=== PATIENT | female | born 1935 | race Asian ===

== ENCOUNTER 2018-10-05 10:23 | Inpatient (IN) | payer MEDICARE, MEDICAID ==
[~2018-10-05] VITALS: Ht 157.5 cm; Wt 49.9 kg
[~2018-10-05 10:23] MED LIST: ARICEPT5 MG ORAL; COZAAR100 MG ORAL; DOCUSATE SODIU100 MG ORAL; DULCOLAX10 MG RC; MAALOX MAXIMUM355 M1 PO; MOM30 ML ORAL; TYLENOL325 MG ORAL; ZOCOR40 MG ORAL
[2018-10-05 10:25] VITALS: BP 100/69
--- NOTE | 2018-10-05 10:25 | NUR ---
ED Nurse Note: PT BROUGHT IN BY AMBULANCE FROM [facility]. AOX2 - PT NOT ORIENTED TO TIME OR SITUATION. PER EMS, PT HAS HAD 3 EPISODES OF COFFEE GROUND EMESIS X THIS AM. PT DENIES PAIN. ACTIVE BOWEL SOUNDS IN ALL QUADRANTS. ABDOMEN NONDISTENDED AND NONTENDER TO PALPATION.
--- NOTE | 2018-10-05 10:39 | Emergency Room Report ---
History of Present Illness General Chief Complaint: Gastrointestinal Bleed Source: EMS Present Illness HPI Patient is sent in for vomiting blood. Vomited coffee grounds. No other history is available about the current situation. The patient is unable to give a history. Patient was admitted in 2009 for psychosis. Chart unavailable. Patient seen for laceration. History of hyperlipidemia. History of dementia. Allergies: Coded Allergies: No Known Allergies (Verified , 02/28/10) Patient History Limited by: medical condition Past Medical History: see triage record, old chart reviewed Social History Narrative [facility] facility Reviewed Nursing Documentation: PMH: Agreed; PSxH: Agreed Nursing Documentation-PMH Past Medical History: No History, Except For Hx Hypertension: Yes - hyperlipidemia Hx Neurological Problems: Yes - dementia Review of Systems All Other Systems: limited Physical Exam Vital Signs Date Time Temp Pulse Resp B/P (MAP) Pulse Ox O2 Delivery O2 Flow Rate FiO2 10/05/18 10:22 97.3 68 15 106/69 95 Room Air Sp02 EP Interpretation: reviewed, normal General Appearance: no apparent distress, alert, Chronically Ill Head: normocephalic, atraumatic Eyes: bilateral eye normal inspection, bilateral eye PERRL ENT: moist mucus membranes Neck: supple Respiratory: lungs clear, normal breath sounds Cardiovascular #1: regular rate, rhythm Cardiovascular #2: 2+ radial (R) Gastrointestinal: normal inspection, normal bowel sounds, non tender, no mass, non-distended Musculoskeletal: gait/station normal, normal range of motion, other - Severe scoliosis and kyphosis Neurologic: motor strength/tone normal, DTRs symmetric, sensory intact, other - Dysarthria, able to ambulate but with some unsteadiness Psychiatric: other - Initially calm but then agitated Skin: normal inspection, warm/dry Medical Decision Making Diagnostic Impression: Primary Impression: Upper gastrointestinal bleed Additional Impressions: Dementia Qualified Codes: F03.91 - Unspecified dementia with behavioral disturbance UTI (urinary tract infection) Qualified Codes: N39.0 - Urinary tract infection, site not specified ER Course Patient presents vomiting coffee grounds. Differential includes gastritis, peptic ulcer disease, Amber-Batista tear amongst others. Evaluation will be with EKG, chest x-ray, x-ray abdomen and labs. The patient will be treated with IV Protonix. EKG without injury. Chest x-ray clear. Abdomen with severe lumbar disc disease and scoliosis with prior fracture. Labs with normal CBC and CMP with elevated BUN. Patient with agitation. Restraints and sedation required. Complicated patient is unable to determine symptoms. Observed history of upper GI bleeding. The patient is admitted for repeat CBC and treatment of possible upper GI bleed. Endoscopy may be indicated. Patient admitted medical floor Dr. Crane. Laboratory Tests Test 10/05/18 11:19 White Blood Count 11.0 K/UL (4.8-10.8) H Red Blood Count 3.82 M/UL (4.20-5.40) L Hemoglobin 11.7 G/DL (12.0-16.0) L Hematocrit 34.9 % (37.0-47.0) L Mean Corpuscular Volume 91 FL (80-99) Mean Corpuscular Hemoglobin 30.5 PG (27.0-31.0) Mean Corpuscular Hemoglobin Concent 33.4 G/DL (32.0-36.0) Red Cell Distribution Width 12.1 % (11.6-14.8) Platelet Count 283 K/UL (150-450) Mean Platelet Volume 6.5 FL (6.5-10.1) Neutrophils (%) (Auto) 79.7 % (45.0-75.0) H Lymphocytes (%) (Auto) 13.4 % (20.0-45.0) L Monocytes (%) (Auto) 5.5 % (1.0-10.0) Eosinophils (%) (Auto) 0.7 % (0.0-3.0) Basophils (%) (Auto) 0.7 % (0.0-2.0) Prothrombin Time 10.2 SEC (9.30-11.50) Prothrombin Time INR 1.0 (0.9-1.1) PTT 27 SEC (23-33) Sodium Level 138 MMOL/L (136-145) Potassium Level 3.8 MMOL/L (3.5-5.1) Chloride Level 104 MMOL/L (98-107) Carbon Dioxide Level 28 MMOL/L (21-32) Anion Gap 6 mmol/L (5-15) Blood Urea Nitrogen 15 mg/dL (7-18) Creatinine 0.7 MG/DL (0.55-1.30) Estimate Glomerular Filtration Rate mL/min (>60) Glucose Level 94 MG/DL (74-106) Calcium Level 9.2 MG/DL (8.5-10.1) Total Bilirubin 0.7 MG/DL (0.2-1.0) Aspartate Amino Transferase (AST) 16 U/L (15-37) Alanine Aminotransferase (ALT) 27 U/L (12-78) Alkaline Phosphatase 72 U/L (46-116) Troponin I 0.000 ng/mL (0.000-0.056) Total Protein 6.7 G/DL (6.4-8.2) Albumin 3.3 G/DL (3.4-5.0) L Globulin 3.4 g/dL Albumin/Globulin Ratio 1.0 (1.0-2.7) Lipase 118 U/L (73-393) EKG Diagnostic Results Rate: normal Rhythm: NSR ST Segments: no acute changes - RBBB Rhythm Strip Diag. Results EP Interpretation: yes Rhythm: NSR, no PVC's, no ectopy Chest X-Ray Diagnostic Results Chest X-Ray Diagnostic Results : Chest X-Ray Ordered: Yes # of Views/Limited/Complete: 1 View Indication: Chest Pain EP Interpretation: Yes Interpretation: no consolidation, no effusion, no pneumothorax Impression: No acute disease Electronically Signed by: Electronically signed by Bentley Priest MD Other X-Ray Diagnostic Results Other X-Ray Diagnostic Results : X-Ray ordered: abd # of Views/Limited Vs Complete: 1 View Indication: Other EP Interpretation: Yes Interpretation: nonspecific bowel gas, no sbo, other - scoleosis Impression: Other Electronically Signed by: Electronically signed by Bentley Priest MD Last Vital Signs Date Time Temp Pulse Resp B/P (MAP) Pulse Ox O2 Delivery O2 Flow Rate FiO2 10/06/18 00:12 97.9 61 18 118/65 (82) 99 10/05/18 21:04 Room Air Status: improved Disposition: ADMITTED INPATIENT Condition: Serious Bentley Priest MD Oct 05, 2018 10:39
[2018-10-05] MEDS ORDERED: Pantoprazole Inj IV ONE (10:45)
--- NOTE | 2018-10-05 11:11 | NUR ---
ED Nurse Note: XRAY AT BEDSIDE.
[2018-10-05 11:30] LABS: BASOPHILS % (AUTO) 0.7 % (0.0-2.0); EOSINOPHILS % (AUTO) 0.7 % (0.0-3.0); HEMATOCRIT 34.9 % (37.0-47.0); HEMOGLOBIN 11.7 G/DL (12.0-16.0); LYMPHOCYTES % (AUTO) 13.4 % (20.0-45.0); MEAN CORPUSCULAR VOLUME 91 FL (80-99); MONOCYTES % (AUTO) 5.5 % (1.0-10.0); NEUTROPHILS % (AUTO) 79.7 % (45.0-75.0); PLATELET COUNT 283 K/UL (150-450); RED BLOOD COUNT 3.82 M/UL (4.20-5.40); RED CELL DISTRIBUTION WIDTH 12.1 % (11.6-14.8)
[2018-10-05 11:38] LABS: ANION GAP 6 mmol/L (5-15); BLOOD UREA NITROGEN 15 mg/dL (7-18); CALCIUM 9.2 MG/DL (8.5-10.1); CARBON DIOXIDE 28 MMOL/L (21-32); CHLORIDE 104 MMOL/L (98-107); CREATININE 0.7 MG/DL (0.55-1.30); POTASSIUM 3.8 MMOL/L (3.5-5.1); SODIUM 138 MMOL/L (136-145)
[2018-10-05 11:42] LABS: ALANINE AMINOTRANSFERASE 27 U/L (12-78); ALBUMIN 3.3 G/DL (3.4-5.0); ALKALINE PHOSPHATASE 72 U/L (46-116); ASPARTATE AMINO TRANSFERASE 16 U/L (15-37); BILIRUBIN,TOTAL 0.7 MG/DL (0.2-1.0)
--- NOTE | 2018-10-05 11:51 | Diagnostic Imaging Report ---
Indication: Cough Technique: One view of the chest Comparison: 10/26/2015 Findings: Sulcal inspiration again noted. Bilateral basilar atelectatic changes again noted. Lungs pleural spaces are otherwise clear. The heart is borderline enlarged. The aorta is tortuous and ectatic. Impression: Hypoventilatory exam with bilateral basilar atelectatic changes. No definite acute process otherwise
--- NOTE | 2018-10-05 11:53 | Diagnostic Imaging Report ---
Indication: Abdominal pain Technique: Supine view of the abdomen Comparison: none Findings: Bowel gas pattern is unremarkable. No masses or unusual calcifications. There is considerable levoscoliotic deformity of the lumbar spine, with fairly extensive secondary degenerative changes. Slight loss of height of the lower lumbar vertebral segments is probably on the basis of degenerative remodeling, but compression fracture deformities are also possible. Impression: No acute process Lumbar scoliosis and secondary degenerative change as described
--- NOTE | 2018-10-05 12:17 | NUR ---
ED Nurse Note: PT PULLED OUT IV AND TIMBER ROBBER CABLES. PT OUT OF BED AND TRYING TO EXIT HOSPITAL. WHEN TRYING TO PLACE HER BACK INTO BED, PT BECAME AGGRESSIVE, COMBATIVE, SWUNG AT STAFF AND TRIED TO BITE SECURITY. ORDERS FOR SOFT RESTRAINTS PLACED BY DR. MCPHERSON. RESTRAINTS PLACED. PT SITTING IN BED BUT REMAINS AGITATED.
[2018-10-05 12:25] VITALS: BP 102/72
[2018-10-05] MEDS ORDERED: DiphenhydrAMINE 50mg/ml Inj IM ONE (12:30)
[2018-10-05] MEDS ORDERED: Haloperidol 5mg/ml Inj IM ONE ×2 (12:30→13:45)
[2018-10-05] MEDS ORDERED: LORazepam Inj 2mg/ml 1ml IM ONE (12:30)
[2018-10-05] MEDS ORDERED: LIPITOR20 MG ORAL (13:38)
[2018-10-05] MEDS ORDERED: MILK OF MA400 MG/51 ORAL (13:38)
--- NOTE | 2018-10-05 13:46 | NUR ---
Note nabil in EDM - 10/05/18 at 1349 by DERIC ED Nurse Note: CALLED SDU FOR PT REPORT. PER CHARGE, ELSE, BED NOT READY AND RN TAKING OVER IS ON ANOTHER FLOOR GIVING REPORT. RN WILL CALL BACK TO RECEIVE REPORT WHEN READY.
--- NOTE | 2018-10-05 13:50 | NUR ---
ED Nurse Note: [facility] CALLED FOR PT REPORT. RN NOT READY TO RECEIVE REPORT. REQUESTS TO CALL BACK IN 15 MINUTES.
--- NOTE | 2018-10-05 14:30 | Consultation ---
History of Present Illness General Date patient seen: Oct 05, 2018 Chief Complaint: Gastrointestinal Bleed Reason for Consultation: inpatient management Present Illness HPI 83 year old female with hx of dementia and psychosis presented to ER with CC of vomiting blood, coffee grounds. No other history is available about the current situation. The patient is unable to give a history. pt is admitted for further evaluation. Allergies: Coded Allergies: No Known Allergies (Verified , 02/28/10) Medication History Scheduled Atorvastatin Calcium* (Lipitor*), 20 MG ORAL BEDTIME, (Reported) Docusate Sodium* (Docusate Sodium*), 100 MG ORAL DAILY, (Reported) Donepezil Hcl* (Aricept*), 5 MG ORAL BEDTIME, (Reported) Losartan Potassium (Cozaar), 50 MG ORAL DAILY, (Reported) Mag Hydrox/Al Hydrox/Simeth (Maalox Maximum Strength Susp), 30 ML PO Q4HR, ( Reported) Magnesium Hydroxide (Milk of Magnesia), 30 ML ORAL NEEDED, (Reported) Magnesium Hydroxide* (Milk Of Magnesia*), 30 ML ORAL DAILY, (Reported) Simvastatin (Zocor), 40 MG ORAL BEDTIME, (Reported) Scheduled PRN Acetaminophen (Tylenol), 325 MG ORAL Q4HR PRN for Fever/Headache/Mild Pain, ( Reported) Miscellaneous Medications Bisacodyl (Dulcolax), 10 MG RC, (Reported) Patient History Healthcare decision maker Resuscitation status Advanced Directive on File Past Medical/Surgical History Past Medical/Surgical History: (1) Dementia Review of Systems All Other Systems: negative except mentioned in HPI Physical Exam General Appearance: cachetic Lines, tubes and drains: peripheral HEENT: normocephalic, atraumatic Neck: non-tender, normal alignment Respiratory/Chest: chest wall non-tender, no respiratory distress Breasts: no masses Cardiovascular/Chest: normal peripheral pulses Abdomen: normal bowel sounds Genitourinary/Rectal: normal genital exam Extremities: normal range of motion Last 24 Hour Vital Signs Date Time Temp Pulse Resp B/P (MAP) Pulse Ox O2 Delivery O2 Flow Rate FiO2 10/05/18 12:25 97.6 64 17 102/72 100 Room Air 10/05/18 10:25 61 16 Room Air 10/05/18 10:25 97.8 61 16 100/69 100 Room Air 10/05/18 10:22 97.3 68 15 106/69 95 Room Air Laboratory Tests Test 10/05/18 11:19 10/05/18 14:08 White Blood Count 11.0 K/UL (4.8-10.8) H Red Blood Count 3.82 M/UL (4.20-5.40) L Hemoglobin 11.7 G/DL (12.0-16.0) L Hematocrit 34.9 % (37.0-47.0) L Mean Corpuscular Volume 91 FL (80-99) Mean Corpuscular Hemoglobin 30.5 PG (27.0-31.0) Mean Corpuscular Hemoglobin Concent 33.4 G/DL (32.0-36.0) Red Cell Distribution Width 12.1 % (11.6-14.8) Platelet Count 283 K/UL (150-450) Mean Platelet Volume 6.5 FL (6.5-10.1) Neutrophils (%) (Auto) 79.7 % (45.0-75.0) H Lymphocytes (%) (Auto) 13.4 % (20.0-45.0) L Monocytes (%) (Auto) 5.5 % (1.0-10.0) Eosinophils (%) (Auto) 0.7 % (0.0-3.0) Basophils (%) (Auto) 0.7 % (0.0-2.0) Prothrombin Time 10.2 SEC (9.30-11.50) Prothromb Time International Ratio 1.0 (0.9-1.1) Activated Partial Thromboplast Time 27 SEC (23-33) Sodium Level 138 MMOL/L (136-145) Potassium Level 3.8 MMOL/L (3.5-5.1) Chloride Level 104 MMOL/L (98-107) Carbon Dioxide Level 28 MMOL/L (21-32) Anion Gap 6 mmol/L (5-15) Blood Urea Nitrogen 15 mg/dL (7-18) Creatinine 0.7 MG/DL (0.55-1.30) Estimat Glomerular Filtration Rate mL/min (>60) Glucose Level 94 MG/DL (74-106) Calcium Level 9.2 MG/DL (8.5-10.1) Total Bilirubin 0.7 MG/DL (0.2-1.0) Aspartate Amino Transf (AST/SGOT) 16 U/L (15-37) Alanine Aminotransferase (ALT/SGPT) 27 U/L (12-78) Alkaline Phosphatase 72 U/L (46-116) Troponin I 0.000 ng/mL (0.000-0.056) Total Protein 6.7 G/DL (6.4-8.2) Albumin 3.3 G/DL (3.4-5.0) L Globulin 3.4 g/dL Albumin/Globulin Ratio 1.0 (1.0-2.7) Lipase 118 U/L (73-393) Urine Color Pending Urine Appearance Pending Urine pH Pending Urine Specific [place] Pending Urine Protein Pending Urine Glucose (UA) Pending Urine Ketones Pending Urine Blood Pending Urine Nitrite Pending Urine Bilirubin Pending Urine Urobilinogen Pending Urine Leukocyte Esterase Pending Height (Feet): 5 Height (Inches): 4.00 Weight (Pounds): 110 Medications Current Medications Medications (Trade) Dose Ordered Sig/Luis Route PRN Reason Start Time Stop Time Status Last Admin Dose Admin Pantoprazole (Protonix) 40 mg EVERY 12 HOURS IVP 10/05/18 21:00 11/04/18 20:59 Sodium Chloride 1,000 ml @ 300 mls/hr Q3H20M IV 10/05/18 10:45 11/04/18 10:44 10/05/18 11:12 Assessment/Plan Problem List: (1) Upper gastrointestinal bleed ICD Codes: K92.2 - Gastrointestinal hemorrhage, unspecified SNOMED: 28913962 (2) Anemia ICD Codes: D64.9 - Anemia, unspecified SNOMED: 860606334 (3) Coffee ground emesis ICD Codes: K92.0 - Hematemesis SNOMED: 77353547 (4) Psychosis ICD Codes: F29 - Unspecified psychosis not due to a substance or known physiological condition SNOMED: 39770153 (5) Protein-calorie malnutrition, severe ICD Codes: E43 - Unspecified severe protein-calorie malnutrition SNOMED: 164871979, 380590798, 194181708 (6) Dementia ICD Codes: F03.90 - Unspecified dementia without behavioral disturbance SNOMED: 85300681 Qualifiers: Qualified Codes: F03.91 - Unspecified dementia with behavioral disturbance Assessment/Plan NPO iv fluids H2 blockers check electrolytes continue psych meds prbc prn GI evaluation Matt Alegre MD Oct 05, 2018 14:29
[2018-10-05] MEDS ORDERED: Mylanta II UD 30ml ORAL PRN (14:33)
--- NOTE | 2018-10-05 14:33 | NUR ---
ED Nurse Note: [facility] CALLED FOR PT REPORT. REPORT GIVEN TO LUIZA STARKEY. PT TAKEN UP TO [facility] VIA GURNEY WITH ALL BELONGINGS ACCOMPANIED BY EMT.
--- NOTE | 2018-10-05 14:38 | GI Initial Consult Note ---
History of Present Illness General Date patient seen: Oct 05, 2018 Time patient seen: 14:33 Reason for Hospitalization: Gastrointestinal Bleed Referring physician: VISHAL KENYON Reason for Consultation: GI BLEED Present Illness HPI 83 year old female patient admitted for reported coffee ground emesis. Pt seen in ED, awake alert with noted agitation. ROS limited, patient has history of dementia on restraints. Labs reviewed; presents with mild leukocytosis WBC 11.7 and mild anemia Hgb 11.7. Unknown history of endoscopy or colonoscopy. Home Meds Reported Medications Magnesium Hydroxide* (MILK OF MAGNESIA*) 400 Mg/5 Ml Oral.susp, 30 ML ORAL DAILY , ML 10/05/18 Atorvastatin Calcium* (LIPITOR*) 20 Mg Tablet, 20 MG ORAL BEDTIME, TAB 10/05/18 Simvastatin (ZOCOR) 40 Mg Tablet, 40 MG ORAL BEDTIME, TAB 10/26/15 Acetaminophen (Tylenol) 325 Mg Tab, 325 MG ORAL Q4HR PRN for Fever/Headache/ Mild Pain, #30 TAB 0 Refills 10/26/15 Mag Hydrox/Al Hydrox/Simeth (MAALOX MAXIMUM STRENGTH SUSP) 355 Ml Oral.susp, 30 ML PO Q4HR, ML 10/26/15 Magnesium Hydroxide (Milk of Magnesia) 30 Ml Susp, 30 ML ORAL NEEDED for Constipation 10/26/15 Bisacodyl (DULCOLAX) 10 Mg Supp.rect, 10 MG RC, SUPP 10/26/15 Docusate Sodium* (DOCUSATE SODIUM*) 100 Mg Capsule, 100 MG ORAL DAILY, CAP 10/26/15 Losartan Potassium (COZAAR) 100 Mg Tablet, 50 MG ORAL DAILY, TAB 10/26/15 Donepezil Hcl* (ARICEPT*) 5 Mg Tablet, 5 MG ORAL BEDTIME, TAB 10/26/15 Med list reviewed/reconciled: Yes Allergies: Coded Allergies: No Known Allergies (Verified , 02/28/10) Patient History Limited by: medical condition History Provided By: Medical Record [facility] Narrative Past Medical History: No History, Except For Hx Hypertension: Yes - hyperlipidemia Hx Neurological Problems: Yes - dementia Past Surgical History: none Family History Narrative N/A Social History: Denies: smoking, alcohol use, drug use, other Review of Systems All Other Systems: limited Physical Exam Vital Signs Date Time Temp Pulse Resp B/P (MAP) Pulse Ox O2 Delivery O2 Flow Rate FiO2 2/20/19 10:22 97.3 68 15 106/69 95 Room Air Sp02 EP Interpretation: reviewed, normal Labs Laboratory Tests Test 10/05/18 11:19 10/05/18 14:08 White Blood Count 11.0 K/UL (4.8-10.8) H Red Blood Count 3.82 M/UL (4.20-5.40) L Hemoglobin 11.7 G/DL (12.0-16.0) L Hematocrit 34.9 % (37.0-47.0) L Mean Corpuscular Volume 91 FL (80-99) Mean Corpuscular Hemoglobin 30.5 PG (27.0-31.0) Mean Corpuscular Hemoglobin Concent 33.4 G/DL (32.0-36.0) Red Cell Distribution Width 12.1 % (11.6-14.8) Platelet Count 283 K/UL (150-450) Mean Platelet Volume 6.5 FL (6.5-10.1) Neutrophils (%) (Auto) 79.7 % (45.0-75.0) H Lymphocytes (%) (Auto) 13.4 % (20.0-45.0) L Monocytes (%) (Auto) 5.5 % (1.0-10.0) Eosinophils (%) (Auto) 0.7 % (0.0-3.0) Basophils (%) (Auto) 0.7 % (0.0-2.0) Prothrombin Time 10.2 SEC (9.30-11.50) Prothromb Time International Ratio 1.0 (0.9-1.1) Activated Partial Thromboplast Time 27 SEC (23-33) Sodium Level 138 MMOL/L (136-145) Potassium Level 3.8 MMOL/L (3.5-5.1) Chloride Level 104 MMOL/L (98-107) Carbon Dioxide Level 28 MMOL/L (21-32) Anion Gap 6 mmol/L (5-15) Blood Urea Nitrogen 15 mg/dL (7-18) Creatinine 0.7 MG/DL (0.55-1.30) Estimat Glomerular Filtration Rate mL/min (>60) Glucose Level 94 MG/DL (74-106) Calcium Level 9.2 MG/DL (8.5-10.1) Total Bilirubin 0.7 MG/DL (0.2-1.0) Aspartate Amino Transf (AST/SGOT) 16 U/L (15-37) Alanine Aminotransferase (ALT/SGPT) 27 U/L (12-78) Alkaline Phosphatase 72 U/L (46-116) Troponin I 0.000 ng/mL (0.000-0.056) Total Protein 6.7 G/DL (6.4-8.2) Albumin 3.3 G/DL (3.4-5.0) L Globulin 3.4 g/dL Albumin/Globulin Ratio 1.0 (1.0-2.7) Lipase 118 U/L (73-393) Urine Color Pending Urine Appearance Pending Urine pH Pending Urine Specific [place] Pending Urine Protein Pending Urine Glucose (UA) Pending Urine Ketones Pending Urine Blood Pending Urine Nitrite Pending Urine Bilirubin Pending Urine Urobilinogen Pending Urine Leukocyte Esterase Pending General Appearance: well appearing, no apparent distress, alert, thin Head: normocephalic EENT: PERRL/EOMI, normal ENT inspection Neck: supple Respiratory: normal breath sounds, no respiratory distress Cardiovascular: normal rate Gastrointestinal: normal inspection, non tender, soft, normal bowel sounds, non -distended Rectal: deferred Genitourinary: no CVA tenderness Musculoskeletal: normal inspection, back normal Neurologic: alert, responsive Psychiatric: memory normal Skin: normal inspection, normal color, no rash, warm/dry, palpation normal, well hydrated Lymphatic: normal inspection, no adenopathy Current Medications Current Medications Medications (Trade) Dose Ordered Sig/Luis Route PRN Reason Start Time Stop Time Status Last Admin Dose Admin Acetaminophen (Tylenol) 650 mg Q4H PRN ORAL fever 10/05/18 14:30 11/04/18 14:29 UNV Al Hydroxide/Mg Hydroxide (Mylanta II) 30 ml Q6H PRN ORAL dyspepsia 10/05/18 14:30 11/04/18 14:29 UNV Atorvastatin Calcium (Lipitor) 20 mg BEDTIME ORAL 10/05/18 21:00 11/04/18 20:59 UNV Dextrose (Dextrose 50%) 25 ml Q30M PRN IV Hypoglycemia 10/05/18 14:30 11/04/18 14:29 UNV Dextrose (Dextrose 50%) 50 ml Q30M PRN IV Hypoglycemia 10/05/18 14:30 11/04/18 14:29 UNV Dextrose/Sodium Chloride 1,000 ml @ 100 mls/hr Q10H IV 10/05/18 14:28 11/04/18 14:27 UNV Diphenhydramine HCl (Benadryl) 25 mg Q6H PRN ORAL Itching/Pruritis 10/05/18 14:30 11/04/18 14:29 UNV Donepezil HCl (Aricept) 5 mg BEDTIME ORAL 10/05/18 21:00 11/04/18 20:59 UNV Ondansetron HCl (Zofran) 4 mg Q6H PRN IVP Nausea & Vomiting 10/05/18 14:30 11/04/18 14:29 UNV Pantoprazole (Protonix) 40 mg EVERY 12 HOURS IVP 10/05/18 21:00 11/04/18 20:59 Phytonadione 10 mg/Dextrose 56 ml @ 110 mls/hr ONCE ONCE IVPB 10/05/18 14:30 10/05/18 15:00 UNV Sodium Chloride 1,000 ml @ 300 mls/hr Q3H20M IV 10/05/18 10:45 11/04/18 10:44 10/05/18 11:12 Temazepam (Restoril) 15 mg HSPRN PRN ORAL Insomnia 10/05/18 14:30 10/12/18 14:29 UNV GI: Plan Problems: (1) Anemia (2) PUD (peptic ulcer disease) (3) Coffee ground emesis (4) Gastritis (5) Upper gastrointestinal bleed Plan EGD to be scheduled for tomorrow. - okay for CLD now, NPO @NV. - hold all blood thinners anemia work up OB stool r/o GI bleed monitor H&H, prn transfusions bowel regime ppi BID will follow with additional recommendations post procedure Discussed with Dr. Jackson. Thank you for this patient referral, we will follow. The patient was seen and examined at bedside and all new and available data was reviewed in the patients chart. I agree with the above findings, impression and plan. (Patient seen earlier today. Signature stamp does not reflect patient encounter time.). - MD Sara ParkAbrazo Arizona Heart HospitalRao GOTTI Oct 05, 2018 14:38
[2018-10-05 14:41] LABS: APPEARANCE,URINE CLOUDY; BILIRUBIN, URINE NEGATIVE (NEGATIVE); COLOR,URINE PALE YELLOW; GLUCOSE, URINE (UA) NEGATIVE (NEGATIVE); KETONES,URINE NEGATIVE (NEGATIVE); LEUKOCYTE ESTERASE ,URINE 3+ (NEGATIVE); NITRITE,URINE NEGATIVE (NEGATIVE); PH,URINE 7 (4.5-8.0); PROTEIN,URINE 1+ (NEGATIVE); UROBILINOGEN,URINE NORMAL MG/DL (0.0-1.0)
--- NOTE | 2018-10-05 14:50 | NUR ---
NURSE NOTES: Received report from JASSON Ojeda RN. Pt brought to room 421-1, bilateral wrist restraints on, pt not speaking, no complaints of pain, vitals obtained, assessment done, see charting, pt confused, attempting to removed restraints and IV and trying to get out of bed, padded bed rails per seizure precaution order, bed in lowest position, call light within reach
[2018-10-05 15:10] VITALS: BP 132/84
[2018-10-05] MEDS: D5NS 1,000 ML IV SCH (16:14)
[2018-10-05] MEDS ORDERED: Phytonadione 10 MG in D5W 55 ML IVPB SCH (17:00)
[2018-10-05] MEDS: LORazepam Inj 2mg/ml 1ml IV PRN (17:01)
--- NOTE | 2018-10-05 17:06 | Consultation ---
History of Present Illness General Date patient seen: Oct 05, 2018 Time patient seen: 17:00 Chief Complaint: Gastrointestinal Bleed Referring physician: VISHAL KENYON Reason for Consultation: GI BLEED Present Illness HPI 83 y/o F with hx of HLD, Dementia presents to ED on 10/05 with coffee ground emesis. Upon admission was noted to have leukocytosis up to 11.7 Allergies: Coded Allergies: No Known Allergies (Verified , 02/28/10) Medication History Scheduled Atorvastatin Calcium* (Lipitor*), 20 MG ORAL BEDTIME, (Reported) Docusate Sodium* (Docusate Sodium*), 100 MG ORAL DAILY, (Reported) Donepezil Hcl* (Aricept*), 5 MG ORAL BEDTIME, (Reported) Losartan Potassium (Cozaar), 50 MG ORAL DAILY, (Reported) Mag Hydrox/Al Hydrox/Simeth (Maalox Maximum Strength Susp), 30 ML PO Q4HR, ( Reported) Magnesium Hydroxide (Milk of Magnesia), 30 ML ORAL NEEDED, (Reported) Magnesium Hydroxide* (Milk Of Magnesia*), 30 ML ORAL DAILY, (Reported) Simvastatin (Zocor), 40 MG ORAL BEDTIME, (Reported) Scheduled PRN Acetaminophen (Tylenol), 325 MG ORAL Q4HR PRN for Fever/Headache/Mild Pain, ( Reported) Miscellaneous Medications Bisacodyl (Dulcolax), 10 MG RC, (Reported) Patient History Healthcare decision maker Resuscitation status Full Code Advanced Directive on File No Patient History Narrative Pmhx: as above Shx: Denies: smoking, alcohol use, drug use, other Fhx: non contributory Review of Systems All Other Systems: negative except mentioned in HPI Physical Exam Physical Exam Narrative General Appearance: well appearing, no apparent distress, alert, thin HEENT: normocephalic, PERRL/EOMI, normal ENT inspection Neck: supple Respiratory: normal breath sounds, no respiratory distress Cardiovascular: normal rate Gastrointestinal: normal inspection, non tender, soft, normal bowel sounds, non -distended Musculoskeletal: normal inspection, back normal Neurologic: alert, responsive Skin: normal inspection, normal color, no rash, warm/dry, palpation normal, well hydrated Last 24 Hour Vital Signs Date Time Temp Pulse Resp B/P (MAP) Pulse Ox O2 Delivery O2 Flow Rate FiO2 10/05/18 15:13 Room Air 10/05/18 15:10 97.7 64 14 132/84 (100) 92 10/05/18 14:35 97.5 66 16 106/74 100 Room Air 10/05/18 12:25 97.6 64 17 102/72 100 Room Air 10/05/18 10:25 61 16 Room Air 10/05/18 10:25 97.8 61 16 100/69 100 Room Air 10/05/18 10:22 97.3 68 15 106/69 95 Room Air Laboratory Tests Test 10/05/18 11:19 10/05/18 14:08 White Blood Count 11.0 K/UL (4.8-10.8) H Red Blood Count 3.82 M/UL (4.20-5.40) L Hemoglobin 11.7 G/DL (12.0-16.0) L Hematocrit 34.9 % (37.0-47.0) L Mean Corpuscular Volume 91 FL (80-99) Mean Corpuscular Hemoglobin 30.5 PG (27.0-31.0) Mean Corpuscular Hemoglobin Concent 33.4 G/DL (32.0-36.0) Red Cell Distribution Width 12.1 % (11.6-14.8) Platelet Count 283 K/UL (150-450) Mean Platelet Volume 6.5 FL (6.5-10.1) Neutrophils (%) (Auto) 79.7 % (45.0-75.0) H Lymphocytes (%) (Auto) 13.4 % (20.0-45.0) L Monocytes (%) (Auto) 5.5 % (1.0-10.0) Eosinophils (%) (Auto) 0.7 % (0.0-3.0) Basophils (%) (Auto) 0.7 % (0.0-2.0) Prothrombin Time 10.2 SEC (9.30-11.50) Prothromb Time International Ratio 1.0 (0.9-1.1) Activated Partial Thromboplast Time 27 SEC (23-33) Sodium Level 138 MMOL/L (136-145) Potassium Level 3.8 MMOL/L (3.5-5.1) Chloride Level 104 MMOL/L (98-107) Carbon Dioxide Level 28 MMOL/L (21-32) Anion Gap 6 mmol/L (5-15) Blood Urea Nitrogen 15 mg/dL (7-18) Creatinine 0.7 MG/DL (0.55-1.30) Estimat Glomerular Filtration Rate mL/min (>60) Glucose Level 94 MG/DL (74-106) Calcium Level 9.2 MG/DL (8.5-10.1) Total Bilirubin 0.7 MG/DL (0.2-1.0) Aspartate Amino Transf (AST/SGOT) 16 U/L (15-37) Alanine Aminotransferase (ALT/SGPT) 27 U/L (12-78) Alkaline Phosphatase 72 U/L (46-116) Troponin I 0.000 ng/mL (0.000-0.056) Total Protein 6.7 G/DL (6.4-8.2) Albumin 3.3 G/DL (3.4-5.0) L Globulin 3.4 g/dL Albumin/Globulin Ratio 1.0 (1.0-2.7) Lipase 118 U/L (73-393) Urine Color Pale yellow Urine Appearance Cloudy Urine pH 7 (4.5-8.0) Urine Specific [place] 1.005 (1.005-1.035) Urine Protein 1+ (NEGATIVE) H Urine Glucose (UA) Negative (NEGATIVE) Urine Ketones Negative (NEGATIVE) Urine Blood 4+ (NEGATIVE) H Urine Nitrite Negative (NEGATIVE) Urine Bilirubin Negative (NEGATIVE) Urine Urobilinogen Normal MG/DL (0.0-1.0) Urine Leukocyte Esterase 3+ (NEGATIVE) H Urine RBC 10-15 /HPF (0 - 2) H Urine WBC 15-20 /HPF (0 - 2) H Urine Squamous Epithelial Cells Few /LPF (NONE/OCC) Urine Bacteria Many /HPF (NONE) H Height (Feet): 5 Height (Inches): 3.00 Weight (Pounds): 110 Medications Current Medications Medications (Trade) Dose Ordered Sig/Luis Route PRN Reason Start Time Stop Time Status Last Admin Dose Admin Acetaminophen (Tylenol) 650 mg Q4H PRN ORAL fever 10/05/18 14:30 11/04/18 14:29 Al Hydroxide/Mg Hydroxide (Mylanta II) 30 ml Q6H PRN ORAL dyspepsia 10/05/18 14:33 11/04/18 14:32 Atorvastatin Calcium (Lipitor) 20 mg BEDTIME ORAL 10/05/18 21:00 11/04/18 20:59 Dextrose (Dextrose 50%) 25 ml Q30M PRN IV Hypoglycemia 10/05/18 14:30 11/04/18 14:29 Dextrose (Dextrose 50%) 50 ml Q30M PRN IV Hypoglycemia 10/05/18 14:30 11/04/18 14:29 Dextrose/Sodium Chloride 1,000 ml @ 100 mls/hr Q10H IV 10/05/18 14:28 11/04/18 14:27 10/05/18 16:14 Diphenhydramine HCl (Benadryl) 25 mg Q6H PRN ORAL Itching/Pruritis 10/05/18 14:30 11/04/18 14:29 Donepezil HCl (Aricept) 5 mg BEDTIME ORAL 10/05/18 21:00 11/04/18 20:59 Lorazepam (Ativan 2mg/ml 1ml) 1 mg Q6H PRN IV For Anxiety 10/05/18 17:00 10/12/18 16:59 Ondansetron HCl (Zofran) 4 mg Q6H PRN IVP Nausea & Vomiting 10/05/18 14:30 11/04/18 14:29 Pantoprazole (Protonix) 40 mg EVERY 12 HOURS IVP 10/05/18 21:00 11/04/18 20:59 Phytonadione 10 mg/Dextrose 56 ml @ 110 mls/hr ONCE IVPB 10/05/18 17:00 10/05/18 19:00 Temazepam (Restoril) 15 mg HSPRN PRN ORAL Insomnia 10/05/18 14:30 10/12/18 14:29 Assessment/Plan Assessment/Plan Abx: None Assessment: Leukocytosis- suspect reactive to coffee ground emesis -CXR: Hypoventilatory exam with bilateral basilar atelectatic changes. No definite acute process otherwise Afebrile Pyuria -u/a wbc 15-20, nit neg, leuk +3; ucx p HLD Dementia Plan: -Continue to monitor off abx unless febrile, increasing WBC and/or HD instability -f/u cx -Monitor CBC/CMP, temperatures Thank you for this consultation. Will continue to follow along with you. Discussed with Miley Torres M.D. Oct 05, 2018 17:06
--- NOTE | 2018-10-05 18:45 | History and Physical Report ---
DATE OF ADMISSION: 10/05/2018 APPROXIMATE TIME: 2 p.m. CONSULTANTS: 1. Matt Alegre M.D. 2. Jordon Jakcson M.D. 3. Go Abad M.D. CHIEF COMPLAINT: Upper gastrointestinal bleed. BRIEF HISTORY: The patient is an 83-year-old female from [facility] presents to [facility] with history of coffee-grounds emesis, was found to have upper GI bleed, and currently in the ER in restraints awaiting admission to the medical floor. Currently, lethargic, sleeping in restraints in the ER, refusing to answer questions. REVIEW OF SYSTEMS: Unavailable. PAST MEDICAL HISTORY: Encephalopathy, anemia, PUD. PAST SURGICAL HISTORY: Unknown. ALLERGIES: Denies. SOCIAL HISTORY: Unable to obtain secondary to the patient's condition. PHYSICAL EXAMINATION: GENERAL: Lethargic in bed, confused, disoriented x3, not really responding to questions, in restraints. VITAL SIGNS: Temperature is 97 degrees, pulse 66, respirations 16, blood pressure 106/74. CARDIOVASCULAR: No murmur. LUNGS: Distant, clear. ABDOMEN: Bowel sounds positive. Nontender. Nondistended. EXTREMITIES: No cyanosis, clubbing, edema. NEUROLOGIC: The patient moves all extremities, but slightly weak. LABORATORY DATA: White count 11, hemoglobin and hematocrit 11.7 and 34, otherwise CBC is normal. BMP is normal. Troponin 0.0. Albumin 3.3, otherwise BMP is normal. INR is 1.0, PTT is 27. Urinalysis showed 3+ leukocyte esterase. MEDICATIONS: Include pantoprazole, atorvastatin, benazepril, Tylenol, Zofran, temazepam, diphenhydramine. ASSESSMENT: Upper GI bleed, encephalopathy, anemia, PUD, UTI. PLAN: Continue previous medications. Antibiotics per Infectious Disease. PT, dietary eval. CBC, BMP in the morning. I will continue to follow this patient medically. Shamar Crane D.O. DR: TRUDI JOB#: [id number] CC:
--- NOTE | 2018-10-05 19:02 | NUR ---
NURSE NOTES: Obtained consent for EGD from pt's family member, [id number], Nell. Consent verified with LUIZA Tai.
--- NOTE | 2018-10-05 19:17 | NUR ---
HAND-OFF: Report given to LUIZA MONTELONGO.
--- NOTE | 2018-10-05 19:54 | NUR ---
NURSE NOTES: Received patient asleep with bilateral soft wrist restraints and paucivest on. Addendum: 10/05/18 at 1957 by REYMUNDO WEBER RN Received patient asleep with bilateral soft wrist restraints on.
[2018-10-05 20:00] VITALS: BP 108/61
[2018-10-05] MEDS: Donepezil 5mg Tab ORAL SCH (20:34)
[2018-10-05] MEDS: Pantoprazole Inj IVP SCH (20:34)
[2018-10-06] VITALS (10 sets, daily range): BP systolic 116–163; BP diastolic 65–96
[2018-10-06] MEDS: D5NS 1,000 ML IV SCH ×3 (03:52→20:14)
--- NOTE | 2018-10-06 06:55 | NUR ---
HAND-OFF: Report given to Natalia Roque RN.
--- NOTE | 2018-10-06 06:58 | NUR ---
NURSE NOTES: Report received from LUIZA Baires. Pt in bed, asleep, respirations unlabored, bed in lowest position, call light within reach
[2018-10-06 08:13] LABS: BASOPHILS % (AUTO) 0.8 % (0.0-2.0); EOSINOPHILS % (AUTO) 2.3 % (0.0-3.0); HEMATOCRIT 38.2 % (37.0-47.0); HEMOGLOBIN 12.5 G/DL (12.0-16.0); LYMPHOCYTES % (AUTO) 15.9 % (20.0-45.0); MEAN CORPUSCULAR VOLUME 93 FL (80-99); NEUTROPHILS % (AUTO) 75.1 % (45.0-75.0); PLATELET COUNT 225 K/UL (150-450); RED CELL DISTRIBUTION WIDTH 12.8 % (11.6-14.8)
[2018-10-06] MEDS: Pantoprazole Inj IVP SCH ×2 (08:14→20:14)
[2018-10-06] MEDS: LORazepam Inj 2mg/ml 1ml IV PRN ×2 (08:18→21:48)
[2018-10-06 08:38] LABS: ALANINE AMINOTRANSFERASE 15 U/L (12-78); ALBUMIN 3.2 G/DL (3.4-5.0); ALBUMIN/GLOBULIN RATIO 0.9 (1.0-2.7); ALKALINE PHOSPHATASE 76 U/L (46-116); ANION GAP 8 mmol/L (5-15); ASPARTATE AMINO TRANSFERASE 27 U/L (15-37); BILIRUBIN,TOTAL 0.7 MG/DL (0.2-1.0); BLOOD UREA NITROGEN 7 mg/dL (7-18); CALCIUM 8.7 MG/DL (8.5-10.1); CARBON DIOXIDE 25 MMOL/L (21-32); CHLORIDE 110 MMOL/L (98-107); CREATININE 0.7 MG/DL (0.55-1.30); POTASSIUM 3.7 MMOL/L (3.5-5.1); SODIUM 143 MMOL/L (136-145)
[2018-10-06 09:02] LABS: AMYLASE 59 U/L (25-115)
--- NOTE | 2018-10-06 11:25 | Anethesia Preoperative Eval ---
Anesthesia Pre-op PMH/ROS General Date of Evaluation: Oct 06, 2018 Time of Evaluation: 11:22 Anesthesiologist: Jennifer Amanda CRNA ASA Score: ASA 3 Mallampati Score Class I : Soft palate, uvula, fauces, pillars visible Class II: Soft palate, uvula, fauces visible Class III: Soft palate, base of uvula visible Class IV: Only hard plate visible Mallampati Classification: Class II Surgeon: Renetta Diagnosis: GI bleed Surgical Procedure: EGD diagnostic Anesthesia History: none Family History: no anesthesia problems Allergies: Coded Allergies: No Known Allergies (Verified , 02/28/10) Medications: see eMAR Patient NPO?: Yes NPO Date: Oct 05, 2018 NPO Time: 1500 Past Medical History Cardiovascular: Denies: HTN, CAD, CA, valve dz, arrhythmia, other Pulmonary: Denies: asthma, COPD, NETO, other Gastrointestinal/Genitourinary: Reports: GERD, other - Gi bleed; Denies: CRI, ESRD Neurologic/Psychiatric: Reports: dementia; Denies: CVA, depression/anxiety, TIA, other Endocrine: Denies: DM, hypothyroidism, steroids, other HEENT: Denies: cataract (L), cataract (R), glaucoma, VENETIE (L), VENETIE (R), other Hematology/Immune: Reports: anemia; Denies: DVT, bleeding disorder, other Musculoskeletal/Integumentary: Reports: other - Lumbar scoliosis; Denies: OA, RA, DJD, DDD, edema PMH Narrative: as above PSxH Narrative: see H & P Anesthesia Pre-op Phys. Exam Physician Exam Last Vital Signs Date Time Temp Pulse Resp B/P (MAP) Pulse Ox O2 Delivery O2 Flow Rate FiO2 10/06/18 09:00 Room Air 10/06/18 08:00 97.2 64 20 149/81 (103) 100 Constitutional: NAD, other - sleeping Neurologic: CN 2-12 intact Cardiovascular: RRR Respiratory: CTA Gastrointestinal: S/NT/ND Airway Exam Mallampati Score: Class II MO: full Neck: FROM TMD: 2-3 FB ROM: full Teeth: intact Dentures: no upper, no lower Anesthesia Pre-op A/P Labs Hematology Test 10/06/18 07:32 White Blood Count 7.0 K/UL (4.8-10.8) Red Blood Count 4.10 M/UL (4.20-5.40) L Hemoglobin 12.5 G/DL (12.0-16.0) Hematocrit 38.2 % (37.0-47.0) Mean Corpuscular Volume 93 FL (80-99) Mean Corpuscular Hemoglobin 30.6 PG (27.0-31.0) Mean Corpuscular Hemoglobin Concent 32.8 G/DL (32.0-36.0) Red Cell Distribution Width 12.8 % (11.6-14.8) Platelet Count 225 K/UL (150-450) Mean Platelet Volume 6.1 FL (6.5-10.1) L Neutrophils (%) (Auto) 75.1 % (45.0-75.0) H Lymphocytes (%) (Auto) 15.9 % (20.0-45.0) L Monocytes (%) (Auto) 6.0 % (1.0-10.0) Eosinophils (%) (Auto) 2.3 % (0.0-3.0) Basophils (%) (Auto) 0.8 % (0.0-2.0) Coagulation Test 10/06/18 07:32 Prothrombin Time 10.2 SEC (9.30-11.50) Prothromb Time International Ratio 1.0 (0.9-1.1) Activated Partial Thromboplast Time 26 SEC (23-33) Chemistry Test 10/06/18 07:32 Sodium Level 143 MMOL/L (136-145) Potassium Level 3.7 MMOL/L (3.5-5.1) Chloride Level 110 MMOL/L (98-107) H Carbon Dioxide Level 25 MMOL/L (21-32) Anion Gap 8 mmol/L (5-15) Blood Urea Nitrogen 7 mg/dL (7-18) Creatinine 0.7 MG/DL (0.55-1.30) Estimat Glomerular Filtration Rate mL/min (>60) Glucose Level 70 MG/DL (74-106) L Calcium Level 8.7 MG/DL (8.5-10.1) Total Bilirubin 0.7 MG/DL (0.2-1.0) Aspartate Amino Transf (AST/SGOT) 27 U/L (15-37) Alanine Aminotransferase (ALT/SGPT) 15 U/L (12-78) Alkaline Phosphatase 76 U/L (46-116) Total Protein 6.7 G/DL (6.4-8.2) Albumin 3.2 G/DL (3.4-5.0) L Globulin 3.5 g/dL Albumin/Globulin Ratio 0.9 (1.0-2.7) L Amylase Level 59 U/L (25-115) Lipase 100 U/L (73-393) Studies Pre-op Studies: CXR - atelectasis Risk Assessment & Plan Assessment: ASA 3, ok to proceed Plan: MAC Status Change Before Surgery: No Pre-Antibiotics Given Within 1 Hr of Incision: No Jennifer Amanda CRNA Oct 06, 2018 11:25
[2018-10-06] MEDS ORDERED: D5NS 1000ml IV ONE (11:30)
[2018-10-06] MEDS ORDERED: Propofol 200mg/20ml IV ONE (11:30)
[2018-10-06] MEDS ORDERED: Lidocaine 1% MPF 10mg/ml 5ml ONE (11:30)
--- NOTE | 2018-10-06 11:36 | Pre-Procedure Note/Attestation ---
Pre-Procedure Note/Attestation Complete Prior to Procedure Planned Procedure: not applicable Procedure Narrative: egd Indications for Procedure Pre-Operative Diagnosis: gib Attestation I attest that I discussed the nature of the procedure; its benefits; risks and complications; and alternatives (and the risks and benefits of such alternatives ), prior to the procedure, with the patient (or the patient's legal manufacturers representative). I attest that, if there was a reasonable possibility of needing a blood transfusion, the patient (or the patient's legal manufacturers representative) was given the [facility] standardized written summary, pursuant to the Bimal Yvrose Blood Safety Act ([place] Health and Safety Code # 1645, as amended). I attest that I re-evaluated the patient just prior to the surgery and that there has been no change in the patient's H&P, except as documented below: Jordon Jackson MD Oct 06, 2018 11:36
--- NOTE | 2018-10-06 11:37 | GI Progress Note ---
Assessment/Plan Problems: (1) GI bleed ICD Codes: K92.2 - Gastrointestinal hemorrhage, unspecified SNOMED: 03598422 (2) Coffee ground emesis ICD Codes: K92.0 - Hematemesis SNOMED: 17363101 (3) Upper gastrointestinal bleed ICD Codes: K92.2 - Gastrointestinal hemorrhage, unspecified SNOMED: 74966710 (4) PUD (peptic ulcer disease) ICD Codes: K27.9 - Peptic ulcer, site unspecified, unspecified as acute or chronic, without hemorrhage or perforation SNOMED: 07885362 (5) Gastritis ICD Codes: K29.70 - Gastritis, unspecified, without bleeding SNOMED: 2542507 Assessment/Plan plan for EGD today Subjective Gastrointestinal/Abdominal: Reports: abdominal pain, black stools Objective Last 24 Hour Vital Signs Date Time Temp Pulse Resp B/P (MAP) Pulse Ox O2 Delivery O2 Flow Rate FiO2 10/06/18 09:00 Room Air 10/06/18 08:00 97.2 64 20 149/81 (103) 100 10/06/18 04:00 97.7 59 18 121/67 (85) 97 10/06/18 00:12 97.9 61 18 118/65 (82) 99 10/05/18 21:04 Room Air 10/05/18 20:00 97.3 59 18 108/61 (77) 92 10/05/18 15:13 Room Air 10/05/18 15:10 97.7 64 14 132/84 (100) 92 10/05/18 14:35 97.5 66 16 106/74 100 Room Air 10/05/18 12:25 97.6 64 17 102/72 100 Room Air Intake and Output 10/05/18 10/06/18 19:00 07:00 Intake Total 1100 ml 1200 ml Balance 1100 ml 1200 ml Intake IV Total 1100 ml 1200 ml # Voids 2 4 Laboratory Tests Test 10/05/18 14:08 10/06/18 07:32 Urine Color Pale yellow Urine Appearance Cloudy Urine pH 7 (4.5-8.0) Urine Specific [place] 1.005 (1.005-1.035) Urine Protein 1+ (NEGATIVE) H Urine Glucose (UA) Negative (NEGATIVE) Urine Ketones Negative (NEGATIVE) Urine Blood 4+ (NEGATIVE) H Urine Nitrite Negative (NEGATIVE) Urine Bilirubin Negative (NEGATIVE) Urine Urobilinogen Normal MG/DL (0.0-1.0) Urine Leukocyte Esterase 3+ (NEGATIVE) H Urine RBC 10-15 /HPF (0 - 2) H Urine WBC 15-20 /HPF (0 - 2) H Urine Squamous Epithelial Cells Few /LPF (NONE/OCC) Urine Bacteria Many /HPF (NONE) H White Blood Count 7.0 K/UL (4.8-10.8) Red Blood Count 4.10 M/UL (4.20-5.40) L Hemoglobin 12.5 G/DL (12.0-16.0) Hematocrit 38.2 % (37.0-47.0) Mean Corpuscular Volume 93 FL (80-99) Mean Corpuscular Hemoglobin 30.6 PG (27.0-31.0) Mean Corpuscular Hemoglobin Concent 32.8 G/DL (32.0-36.0) Red Cell Distribution Width 12.8 % (11.6-14.8) Platelet Count 225 K/UL (150-450) Mean Platelet Volume 6.1 FL (6.5-10.1) L Neutrophils (%) (Auto) 75.1 % (45.0-75.0) H Lymphocytes (%) (Auto) 15.9 % (20.0-45.0) L Monocytes (%) (Auto) 6.0 % (1.0-10.0) Eosinophils (%) (Auto) 2.3 % (0.0-3.0) Basophils (%) (Auto) 0.8 % (0.0-2.0) Prothrombin Time 10.2 SEC (9.30-11.50) Prothromb Time International Ratio 1.0 (0.9-1.1) Activated Partial Thromboplast Time 26 SEC (23-33) Sodium Level 143 MMOL/L (136-145) Potassium Level 3.7 MMOL/L (3.5-5.1) Chloride Level 110 MMOL/L (98-107) H Carbon Dioxide Level 25 MMOL/L (21-32) Anion Gap 8 mmol/L (5-15) Blood Urea Nitrogen 7 mg/dL (7-18) Creatinine 0.7 MG/DL (0.55-1.30) Estimat Glomerular Filtration Rate mL/min (>60) Glucose Level 70 MG/DL (74-106) L Calcium Level 8.7 MG/DL (8.5-10.1) Total Bilirubin 0.7 MG/DL (0.2-1.0) Aspartate Amino Transf (AST/SGOT) 27 U/L (15-37) Alanine Aminotransferase (ALT/SGPT) 15 U/L (12-78) Alkaline Phosphatase 76 U/L (46-116) Total Protein 6.7 G/DL (6.4-8.2) Albumin 3.2 G/DL (3.4-5.0) L Globulin 3.5 g/dL Albumin/Globulin Ratio 0.9 (1.0-2.7) L Amylase Level 59 U/L (25-115) Lipase 100 U/L (73-393) Microbiology Date/Time Source Procedure Growth Status 10/05/18 14:08 Urine,Clean Catch Urine Culture - Preliminary Resulted Height (Feet): 5 Height (Inches): 2.00 Weight (Pounds): 110 General Appearance: no apparent distress Cardiovascular: normal rate Respiratory/Chest: lungs clear Abdominal Exam: normal bowel sounds, non tender, soft Extremities: non-tender Jordon Jackson MD Oct 06, 2018 11:37
--- NOTE | 2018-10-06 11:47 | Endoscopy Procedure Note ---
Endoscopy Procedure Note General Indication for Procedure: gib Procedures Performed: EGD Operative Findings/Diagnosis: esophagitis Specimen: yes Pt Tolerated Procedure Well: Yes Estimated Blood Loss: none Anesthesia Anesthesiologist: mac Anesthesia: MAC Inserted Devices Implant(s) used?: No GI Core Measures 50 yrs or older w/o bx or poly: Not Applicable 10yrs. F/U not recommended: Not Applicable Jordon Jackson MD Oct 06, 2018 11:47
--- NOTE | 2018-10-06 12:00 | Immediate Post-Op Evaluation ---
Immediate Post-Op Evalulation Immediate Post-Op Evalulation Procedure: EGD diagnostic Date of Evaluation: Oct 06, 2018 Time of Evaluation: 11:50 IV Fluids: D5/0.9 NS 50 ml Blood Pressure Systolic: 143 Blood Pressure Diastolic: 89 Pulse Rate: 65 Respiratory Rate: 20 O2 Sat by Pulse Oximetry: 100 Temperature (Fahrenheit): 97.9 Pain Score (1-10): 0 Nausea: No Vomiting: No Complications none Patient Status: reacts, patent Hydration Status: adequate Given Within 1 Hr of Incision: Jennifer Arguelles CRNA Oct 06, 2018 12:00
--- NOTE | 2018-10-06 13:37 | Pulmonology Progress Note ---
Assessment/Plan Problems: (1) Upper gastrointestinal bleed (2) Coffee ground emesis (3) Protein-calorie malnutrition, severe (4) Psychosis (5) Dementia Assessment/Plan continue NPO iv fluids, the same rate H2 blockers check electrolytes continue psych meds prbc prn GI evaluation Subjective ROS Limited/Unobtainable: Yes Constitutional: Reports: no symptoms HEENT: Repors: no symptoms Allergies: Coded Allergies: No Known Allergies (Verified , 02/28/10) Objective Last 24 Hour Vital Signs Date Time Temp Pulse Resp B/P (MAP) Pulse Ox O2 Delivery O2 Flow Rate FiO2 10/06/18 12:23 98.0 58 17 145/78 100 Nasal Cannula 3 10/06/18 12:10 59 16 140/81 99 Nasal Cannula 3 10/06/18 12:00 57 15 139/78 100 Nasal Cannula 3 10/06/18 12:00 65 20 100 10/06/18 11:55 60 17 144/82 100 Nasal Cannula 3 10/06/18 11:50 97.9 65 14 143/88 100 Nasal Cannula 3 10/06/18 09:00 Room Air 10/06/18 08:00 97.2 64 20 149/81 (103) 100 10/06/18 04:00 97.7 59 18 121/67 (85) 97 10/06/18 00:12 97.9 61 18 118/65 (82) 99 10/05/18 21:04 Room Air 10/05/18 20:00 97.3 59 18 108/61 (77) 92 10/05/18 15:13 Room Air 10/05/18 15:10 97.7 64 14 132/84 (100) 92 10/05/18 14:35 97.5 66 16 106/74 100 Room Air Intake and Output 10/05/18 10/06/18 19:00 07:00 Intake Total 1100 ml 1200 ml Balance 1100 ml 1200 ml Intake IV Total 1100 ml 1200 ml # Voids 2 4 Objective General Appearance: WD/WN HEENT: normocephalic Respiratory/Chest: chest wall non-tender, lungs clear, normal breath sounds Breasts: no masses Cardiovascular: normal peripheral pulses, normal rate Abdomen: normal bowel sounds, soft, non tender Extremities: no cyanosis Skin: no rash Microbiology Date/Time Source Procedure Growth Status 10/05/18 14:08 Urine,Clean Catch Urine Culture - Preliminary Resulted Laboratory Tests 10/05/18 14:08: Urine Color Pale yellow, Urine Appearance Cloudy, Urine pH 7, Urine Specific [place] 1.005, Urine Protein 1+H, Urine Glucose (UA) Negative, Urine Ketones Negative, Urine Blood 4+H, Urine Nitrite Negative, Urine Bilirubin Negative, Urine Urobilinogen Normal, Urine Leukocyte Esterase 3+H, Urine RBC 10-15H, Urine WBC 15-20H, Urine Squamous Epithelial Cells Few, Urine Bacteria ManyH 10/06/18 07:32: White Blood Count 7.0, Red Blood Count 4.10L, Hemoglobin 12.5, Hematocrit 38.2, Mean Corpuscular Volume 93, Mean Corpuscular Hemoglobin 30.6, Mean Corpuscular Hemoglobin Concent 32.8, Red Cell Distribution Width 12.8, Platelet Count 225, Mean Platelet Volume 6.1L, Neutrophils (%) (Auto) 75.1H, Lymphocytes (%) (Auto) 15.9L, Monocytes (%) (Auto) 6.0, Eosinophils (%) (Auto) 2.3, Basophils (%) (Auto ) 0.8, Prothrombin Time 10.2, Prothromb Time International Ratio 1.0, Activated Partial Thromboplast Time 26, Sodium Level 143, Potassium Level 3.7, Chloride Level 110H, Carbon Dioxide Level 25, Anion Gap 8, Blood Urea Nitrogen 7, Creatinine 0.7, Estimat Glomerular Filtration Rate , Glucose Level 70L, Calcium Level 8.7, Total Bilirubin 0.7, Aspartate Amino Transf (AST/SGOT) 27, Alanine Aminotransferase (ALT/SGPT) 15, Alkaline Phosphatase 76, Total Protein 6.7, Albumin 3.2L, Globulin 3.5, Albumin/Globulin Ratio 0.9L, Amylase Level 59, Lipase 100 Current Medications Medications (Trade) Dose Ordered Sig/Luis Route PRN Reason Start Time Stop Time Status Last Admin Dose Admin Acetaminophen (Tylenol) 650 mg Q4H PRN ORAL fever 10/05/18 14:30 11/04/18 14:29 Al Hydroxide/Mg Hydroxide (Mylanta II) 30 ml Q6H PRN ORAL dyspepsia 10/05/18 14:33 11/04/18 14:32 Atorvastatin Calcium (Lipitor) 20 mg BEDTIME ORAL 10/05/18 21:00 11/04/18 20:59 Dextrose (Dextrose 50%) 25 ml Q30M PRN IV Hypoglycemia 10/05/18 14:30 11/04/18 14:29 Dextrose (Dextrose 50%) 50 ml Q30M PRN IV Hypoglycemia 10/05/18 14:30 11/04/18 14:29 Dextrose/Sodium Chloride 1,000 ml @ 100 mls/hr Q10H IV 10/05/18 14:28 11/04/18 14:27 10/06/18 03:52 Diphenhydramine HCl (Benadryl) 25 mg Q6H PRN ORAL Itching/Pruritis 10/05/18 14:30 11/04/18 14:29 Donepezil HCl (Aricept) 5 mg BEDTIME ORAL 10/05/18 21:00 11/04/18 20:59 Lorazepam (Ativan 2mg/ml 1ml) 1 mg Q6H PRN IV For Anxiety 10/05/18 17:00 10/12/18 16:59 10/06/18 08:18 Ondansetron HCl (Zofran) 4 mg Q6H PRN IVP Nausea & Vomiting 10/05/18 14:30 11/04/18 14:29 Pantoprazole (Protonix) 40 mg EVERY 12 HOURS IVP 10/05/18 21:00 11/04/18 20:59 10/06/18 08:14 Temazepam (Restoril) 15 mg HSPRN PRN ORAL Insomnia 10/05/18 14:30 10/12/18 14:29 Matt Alegre MD Oct 06, 2018 13:37
--- NOTE | 2018-10-06 15:27 | General Progress Note ---
Assessment/Plan Problem List: (1) Malnutrition ICD Codes: E46 - Unspecified protein-calorie malnutrition SNOMED: 00919113 (2) UTI (urinary tract infection) ICD Codes: N39.0 - Urinary tract infection, site not specified SNOMED: 22012736 (3) Coffee ground emesis ICD Codes: K92.0 - Hematemesis SNOMED: 00245580 (4) GI bleed ICD Codes: K92.2 - Gastrointestinal hemorrhage, unspecified SNOMED: 86014410 (5) Anemia ICD Codes: D64.9 - Anemia, unspecified SNOMED: 875245835 Status: unchanged Assessment/Plan pt diet abx gi f/u cbc bmp am Subjective Constitutional: Reports: weakness Allergies: Coded Allergies: No Known Allergies (Verified , 02/28/10) All Systems: reviewed and negative except above Subjective calm in bed Objective Last 24 Hour Vital Signs Date Time Temp Pulse Resp B/P (MAP) Pulse Ox O2 Delivery O2 Flow Rate FiO2 10/06/18 12:23 98.0 58 17 145/78 100 Nasal Cannula 3 10/06/18 12:10 59 16 140/81 99 Nasal Cannula 3 10/06/18 12:00 57 15 139/78 100 Nasal Cannula 3 10/06/18 12:00 65 20 100 10/06/18 11:55 60 17 144/82 100 Nasal Cannula 3 10/06/18 11:50 97.9 65 14 143/88 100 Nasal Cannula 3 10/06/18 09:00 Room Air 10/06/18 08:00 97.2 64 20 149/81 (103) 100 10/06/18 04:00 97.7 59 18 121/67 (85) 97 10/06/18 00:12 97.9 61 18 118/65 (82) 99 10/05/18 21:04 Room Air 10/05/18 20:00 97.3 59 18 108/61 (77) 92 Intake and Output 10/05/18 10/06/18 19:00 07:00 Intake Total 1100 ml 1200 ml Balance 1100 ml 1200 ml Intake IV Total 1100 ml 1200 ml # Voids 2 4 Laboratory Tests 10/06/18 07:32: White Blood Count 7.0, Red Blood Count 4.10L, Hemoglobin 12.5, Hematocrit 38.2, Mean Corpuscular Volume 93, Mean Corpuscular Hemoglobin 30.6, Mean Corpuscular Hemoglobin Concent 32.8, Red Cell Distribution Width 12.8, Platelet Count 225, Mean Platelet Volume 6.1L, Neutrophils (%) (Auto) 75.1H, Lymphocytes (%) (Auto) 15.9L, Monocytes (%) (Auto) 6.0, Eosinophils (%) (Auto) 2.3, Basophils (%) (Auto ) 0.8, Prothrombin Time 10.2, Prothromb Time International Ratio 1.0, Activated Partial Thromboplast Time 26, Sodium Level 143, Potassium Level 3.7, Chloride Level 110H, Carbon Dioxide Level 25, Anion Gap 8, Blood Urea Nitrogen 7, Creatinine 0.7, Estimat Glomerular Filtration Rate , Glucose Level 70L, Calcium Level 8.7, Total Bilirubin 0.7, Aspartate Amino Transf (AST/SGOT) 27, Alanine Aminotransferase (ALT/SGPT) 15, Alkaline Phosphatase 76, Total Protein 6.7, Albumin 3.2L, Globulin 3.5, Albumin/Globulin Ratio 0.9L, Amylase Level 59, Lipase 100 Height (Feet): 5 Height (Inches): 2.00 Weight (Pounds): 110 General Appearance: lethargic EENT: normal ENT inspection Neck: normal alignment Cardiovascular: normal peripheral pulses, normal rate, regular rhythm Respiratory/Chest: chest wall non-tender, lungs clear, normal breath sounds Abdomen: normal bowel sounds, non tender, soft Extremities: normal inspection Edema: no edema noted Arm (L), no edema noted Arm (R), no edema noted Leg (L), no edema noted Leg (R), no edema noted Pedal (L), no edema noted Pedal (R), no edema noted Generalized Neurologic: motor weakness Skin: normal pigmentation, warm/dry Shamar Crane DO Oct 06, 2018 15:27
--- NOTE | 2018-10-06 15:38 | NUR ---
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 97.4 HR 68 RR 15 B/P 106/69 WBC 11.0 H/H 11.7/34.9 UA+ PROTEIN,BLOOD,LEUKOCYTOSIS,RBC,WBC,BACTERIA CXR=HYPOVOLEMIA ATELECTASIS IS: ZOFRAN IV PROTONIX IV NS BOLUS X 1 LITER ADMITTED TO MED/SURG MED/SURG STATUS DCP RETURN TO [facility]
--- NOTE | 2018-10-06 15:59 | Infectious Diseases Prog Note ---
Assessment/Plan Assessment/Plan Abx: None Assessment: Leukocytosis- suspect reactive to coffee ground emesis; resolved off abx -CXR: Hypoventilatory exam with bilateral basilar atelectatic changes. No definite acute process otherwise Afebrile Pyuria -u/a wbc 15-20, nit neg, leuk +3; ucx p HLD Dementia Plan: -Continue to monitor off abx unless febrile, increasing WBC and/or HD instability -f/u cx -Monitor CBC/CMP, temperatures Thank you for this consultation. Will continue to follow along with you. Discussed with RN. Subjective Allergies: Coded Allergies: No Known Allergies (Verified , 02/28/10) Subjective afebrile leukocytosis resolved off abx Objective Vital Signs Last 24 Hour Vital Signs Date Time Temp Pulse Resp B/P (MAP) Pulse Ox O2 Delivery O2 Flow Rate FiO2 10/06/18 12:23 98.0 58 17 145/78 100 Nasal Cannula 3 10/06/18 12:10 59 16 140/81 99 Nasal Cannula 3 10/06/18 12:00 57 15 139/78 100 Nasal Cannula 3 10/06/18 12:00 65 20 100 10/06/18 11:55 60 17 144/82 100 Nasal Cannula 3 10/06/18 11:50 97.9 65 14 143/88 100 Nasal Cannula 3 10/06/18 09:00 Room Air 10/06/18 08:00 97.2 64 20 149/81 (103) 100 10/06/18 04:00 97.7 59 18 121/67 (85) 97 10/06/18 00:12 97.9 61 18 118/65 (82) 99 10/05/18 21:04 Room Air 10/05/18 20:00 97.3 59 18 108/61 (77) 92 Height (Feet): 5 Height (Inches): 2.00 Weight (Pounds): 110 Objective General Appearance: well appearing, no apparent distress, alert, thin HEENT: normocephalic, PERRL/EOMI, normal ENT inspection Neck: supple Respiratory: normal breath sounds, no respiratory distress Cardiovascular: normal rate Gastrointestinal: normal inspection, non tender, soft, normal bowel sounds, non -distended Musculoskeletal: normal inspection, back normal Neurologic: alert, responsive Skin: normal inspection, normal color, no rash, warm/dry, palpation normal, well hydrated Microbiology Date/Time Source Procedure Growth Status 10/05/18 14:08 Urine,Clean Catch Urine Culture - Preliminary Resulted Laboratory Tests Test 10/06/18 07:32 White Blood Count 7.0 K/UL (4.8-10.8) Red Blood Count 4.10 M/UL (4.20-5.40) L Hemoglobin 12.5 G/DL (12.0-16.0) Hematocrit 38.2 % (37.0-47.0) Mean Corpuscular Volume 93 FL (80-99) Mean Corpuscular Hemoglobin 30.6 PG (27.0-31.0) Mean Corpuscular Hemoglobin Concent 32.8 G/DL (32.0-36.0) Red Cell Distribution Width 12.8 % (11.6-14.8) Platelet Count 225 K/UL (150-450) Mean Platelet Volume 6.1 FL (6.5-10.1) L Neutrophils (%) (Auto) 75.1 % (45.0-75.0) H Lymphocytes (%) (Auto) 15.9 % (20.0-45.0) L Monocytes (%) (Auto) 6.0 % (1.0-10.0) Eosinophils (%) (Auto) 2.3 % (0.0-3.0) Basophils (%) (Auto) 0.8 % (0.0-2.0) Prothrombin Time 10.2 SEC (9.30-11.50) Prothromb Time International Ratio 1.0 (0.9-1.1) Activated Partial Thromboplast Time 26 SEC (23-33) Sodium Level 143 MMOL/L (136-145) Potassium Level 3.7 MMOL/L (3.5-5.1) Chloride Level 110 MMOL/L (98-107) H Carbon Dioxide Level 25 MMOL/L (21-32) Anion Gap 8 mmol/L (5-15) Blood Urea Nitrogen 7 mg/dL (7-18) Creatinine 0.7 MG/DL (0.55-1.30) Estimat Glomerular Filtration Rate mL/min (>60) Glucose Level 70 MG/DL (74-106) L Calcium Level 8.7 MG/DL (8.5-10.1) Total Bilirubin 0.7 MG/DL (0.2-1.0) Aspartate Amino Transf (AST/SGOT) 27 U/L (15-37) Alanine Aminotransferase (ALT/SGPT) 15 U/L (12-78) Alkaline Phosphatase 76 U/L (46-116) Total Protein 6.7 G/DL (6.4-8.2) Albumin 3.2 G/DL (3.4-5.0) L Globulin 3.5 g/dL Albumin/Globulin Ratio 0.9 (1.0-2.7) L Amylase Level 59 U/L (25-115) Lipase 100 U/L (73-393) Current Medications Medications (Trade) Dose Ordered Sig/Luis Route PRN Reason Start Time Stop Time Status Last Admin Dose Admin Acetaminophen (Tylenol) 650 mg Q4H PRN ORAL fever 10/05/18 14:30 11/04/18 14:29 Al Hydroxide/Mg Hydroxide (Mylanta II) 30 ml Q6H PRN ORAL dyspepsia 10/05/18 14:33 11/04/18 14:32 Atorvastatin Calcium (Lipitor) 20 mg BEDTIME ORAL 10/05/18 21:00 11/04/18 20:59 Dextrose (Dextrose 50%) 25 ml Q30M PRN IV Hypoglycemia 10/05/18 14:30 11/04/18 14:29 Dextrose (Dextrose 50%) 50 ml Q30M PRN IV Hypoglycemia 10/05/18 14:30 11/04/18 14:29 Dextrose/Sodium Chloride 1,000 ml @ 100 mls/hr Q10H IV 10/05/18 14:28 11/04/18 14:27 10/06/18 03:52 Diphenhydramine HCl (Benadryl) 25 mg Q6H PRN ORAL Itching/Pruritis 10/05/18 14:30 11/04/18 14:29 Donepezil HCl (Aricept) 5 mg BEDTIME ORAL 10/05/18 21:00 11/04/18 20:59 Lorazepam (Ativan 2mg/ml 1ml) 1 mg Q6H PRN IV For Anxiety 10/05/18 17:00 10/12/18 16:59 10/06/18 08:18 Ondansetron HCl (Zofran) 4 mg Q6H PRN IVP Nausea & Vomiting 10/05/18 14:30 11/04/18 14:29 Pantoprazole (Protonix) 40 mg EVERY 12 HOURS IVP 10/05/18 21:00 11/04/18 20:59 10/06/18 08:14 Temazepam (Restoril) 15 mg HSPRN PRN ORAL Insomnia 10/05/18 14:30 10/12/18 14:29 Miley Worthington M.D. Oct 06, 2018 15:59
--- NOTE | 2018-10-06 17:15 | Procedure Note ---
DATE OF PROCEDURE: 10/06/2018 SURGEON: Jordon Jackson M.D. REFERRING PHYSICIAN: Shamar Crane D.O. PROCEDURE: Upper endoscopy with biopsy. ANESTHESIA: Per Jennifer KENT. INSTRUMENT: Olympus adult flexible upper endoscope. INDICATION: Upper GI bleeding. REASON FOR PROCEDURE: The procedure, risks, benefits, and possible consequences, including hemorrhage, aspiration, perforation and infection, and alternative treatments, were explained to the patient/legal guardian by Dr. Jordon Jackson and the patient/legal guardian understood and accepted these risks. PROCEDURE IN DETAIL: After informed consent was obtained and the patient was adequately sedated, Olympus upper endoscope was advanced from mouth into the second portion of duodenum and retroflexion was performed in the stomach. The patient had evidence of distal esophagitis, LA criteria grade 2, most probably the source of upper GI bleeding. At this time, there is no evidence of any blood or blood products seen in the stomach. In the stomach, there was diffuse gastritis. Random biopsy from antrum was obtained to rule out H. pylori infection. At this time, the upper endoscope was retrieved and procedure was terminated. The patient tolerated the procedure very well without any complication. SUMMARY OF FINDINGS: 1. Distal esophagitis, most probably the source of bleeding. 2. Gastritis, status post biopsy. RECOMMENDATIONS: 1. PPI daily. 2. Reflux measures. 3. Resume diet. 4. Discharge planning per primary team. I want to thank Dr. Shamar Crane for this kind referral. Jordon Jackson M.D. DR: ZEINA JOB#: [id number] CC:
--- NOTE | 2018-10-06 19:30 | NUR ---
HAND-OFF: Report given to LUIZA Be.
[2018-10-06] MEDS: Donepezil 5mg Tab ORAL SCH (20:14)
[2018-10-07] VITALS: BP 129/78
[2018-10-07 04:27] VITALS: BP 152/90
[2018-10-07] MEDS: D5NS 1,000 ML IV SCH ×2 (06:16→16:28)
[2018-10-07 07:19] LABS: BASOPHILS % (AUTO) 1.9 % (0.0-2.0); EOSINOPHILS % (AUTO) 2.2 % (0.0-3.0); HEMATOCRIT 35.1 % (37.0-47.0); HEMOGLOBIN 11.7 G/DL (12.0-16.0); LYMPHOCYTES % (AUTO) 11.2 % (20.0-45.0); MEAN CORPUSCULAR VOLUME 91 FL (80-99); MONOCYTES % (AUTO) 8.6 % (1.0-10.0); NEUTROPHILS % (AUTO) 76.2 % (45.0-75.0); PLATELET COUNT 247 K/UL (150-450); RED BLOOD COUNT 3.84 M/UL (4.20-5.40); RED CELL DISTRIBUTION WIDTH 12.1 % (11.6-14.8); WHITE BLOOD COUNT 8.2 K/UL (4.8-10.8)
--- NOTE | 2018-10-07 07:33 | NUR ---
NURSE NOTES: pt in bed with nos nor in any form of distress noted. on (B)soft wrist restraint with no injury. Remains in bed calm and sleeping at this time. Bed in lowest position. Bed alarm on. Call light within reach at all time. will continue to monitor
[2018-10-07 07:49] LABS: ANION GAP 6 mmol/L (5-15); BLOOD UREA NITROGEN 7 mg/dL (7-18); CARBON DIOXIDE 27 MMOL/L (21-32); CHLORIDE 108 MMOL/L (98-107); CREATININE 0.7 MG/DL (0.55-1.30); POTASSIUM 3.4 MMOL/L (3.5-5.1); SODIUM 141 MMOL/L (136-145)
--- NOTE | 2018-10-07 07:52 | NUR ---
HAND-OFF: Report given to Mauricio JARRETT.
[2018-10-07 08:00] VITALS: BP 132/77
[2018-10-07] MEDS: Pantoprazole Inj IVP SCH ×2 (09:06→20:41)
[2018-10-07] MEDS: LORazepam Inj 2mg/ml 1ml IV PRN ×2 (09:07→16:06)
--- NOTE | 2018-10-07 11:26 | GI Progress Note ---
Assessment/Plan Problems: (1) Upper gastrointestinal bleed ICD Codes: K92.2 - Gastrointestinal hemorrhage, unspecified SNOMED: 65328373 (2) Dementia ICD Codes: F03.90 - Unspecified dementia without behavioral disturbance SNOMED: 99306981 Qualifiers: Qualified Codes: F03.91 - Unspecified dementia with behavioral disturbance (3) Malnutrition ICD Codes: E46 - Unspecified protein-calorie malnutrition SNOMED: 94789329 (4) GI bleed ICD Codes: K92.2 - Gastrointestinal hemorrhage, unspecified SNOMED: 33099436 (5) Coffee ground emesis ICD Codes: K92.0 - Hematemesis SNOMED: 03220552 (6) PUD (peptic ulcer disease) ICD Codes: K27.9 - Peptic ulcer, site unspecified, unspecified as acute or chronic, without hemorrhage or perforation SNOMED: 41970726 (7) Gastritis ICD Codes: K29.70 - Gastritis, unspecified, without bleeding SNOMED: 0946211 (8) Anemia ICD Codes: D64.9 - Anemia, unspecified SNOMED: 739844985 Status: stable Status Narrative Discussed with Dr. Jackson Assessment/Plan SUMMARY OF FINDINGS: 1. Distal esophagitis, most probably the source of bleeding. 2. Gastritis, status post biopsy. RECOMMENDATIONS: 1. PPI daily. 2. Reflux measures. 3. Resume diet. 4. Discharge planning per primary team. The patient was seen and examined at bedside and all new and available data was reviewed in the patients chart. I agree with the above findings, impression and plan. (Patient seen earlier today. Signature stamp does not reflect patient encounter time.). - Jordon Jackson MD Subjective Subjective Limited Objective Last 24 Hour Vital Signs Date Time Temp Pulse Resp B/P (MAP) Pulse Ox O2 Delivery O2 Flow Rate FiO2 10/07/18 09:39 Room Air 10/07/18 08:00 98.1 66 18 132/77 (95) 66 10/07/18 04:27 98.3 84 18 152/90 (110) 84 10/07/18 00:00 98.3 78 18 129/78 (95) 98 10/06/18 21:25 Room Air 10/06/18 20:00 98.6 97 18 163/96 (118) 97 10/06/18 16:00 97.1 74 20 133/79 (97) 95 10/06/18 12:23 98.0 58 17 145/78 100 Nasal Cannula 3 10/06/18 12:10 59 16 140/81 99 Nasal Cannula 3 10/06/18 12:00 57 15 139/78 100 Nasal Cannula 3 10/06/18 12:00 65 20 100 10/06/18 11:55 60 17 144/82 100 Nasal Cannula 3 10/06/18 11:50 97.9 65 14 143/88 100 Nasal Cannula 3 Intake and Output 10/06/18 10/07/18 19:00 07:00 Intake Total 50 ml Balance 50 ml IV Total 50 ml # Voids 4 1 Laboratory Tests Test 10/07/18 05:50 White Blood Count 8.2 K/UL (4.8-10.8) Red Blood Count 3.84 M/UL (4.20-5.40) L Hemoglobin 11.7 G/DL (12.0-16.0) L Hematocrit 35.1 % (37.0-47.0) L Mean Corpuscular Volume 91 FL (80-99) Mean Corpuscular Hemoglobin 30.6 PG (27.0-31.0) Mean Corpuscular Hemoglobin Concent 33.5 G/DL (32.0-36.0) Red Cell Distribution Width 12.1 % (11.6-14.8) Platelet Count 247 K/UL (150-450) Mean Platelet Volume 6.2 FL (6.5-10.1) L Neutrophils (%) (Auto) 76.2 % (45.0-75.0) H Lymphocytes (%) (Auto) 11.2 % (20.0-45.0) L Monocytes (%) (Auto) 8.6 % (1.0-10.0) Eosinophils (%) (Auto) 2.2 % (0.0-3.0) Basophils (%) (Auto) 1.9 % (0.0-2.0) Sodium Level 141 MMOL/L (136-145) Potassium Level 3.4 MMOL/L (3.5-5.1) L Chloride Level 108 MMOL/L (98-107) H Carbon Dioxide Level 27 MMOL/L (21-32) Anion Gap 6 mmol/L (5-15) Blood Urea Nitrogen 7 mg/dL (7-18) Creatinine 0.7 MG/DL (0.55-1.30) Estimat Glomerular Filtration Rate mL/min (>60) Glucose Level 81 MG/DL (74-106) Calcium Level 9.0 MG/DL (8.5-10.1) Height (Feet): 5 Height (Inches): 2.00 Weight (Pounds): 110 General Appearance: no apparent distress Cardiovascular: normal rate Respiratory/Chest: normal breath sounds, no respiratory distress Abdominal Exam: normal bowel sounds, non tender, soft Extremities: non-tender Ed Ruiz NP Oct 07, 2018 11:26
[2018-10-07 12:00] VITALS: BP 136/73
--- NOTE | 2018-10-07 13:58 | 48 Hour Post Anesthesia Eval ---
Post Anesthesia Evaluation Procedure: EGD diagnostic Date of Evaluation: Oct 07, 2018 Time of Evaluation: 13:57 Blood Pressure Systolic: 136 0: 73 Pulse Rate: 86 Respiratory Rate: 20 Temperature (Fahrenheit): 98.1 O2 Sat by Pulse Oximetry: 100 Airway: patent Nausea: No Vomiting: No Pain Intensity: 0 Hydration Status: adequate Cardiopulmonary Status: stable Mental Status/LOC: patient returned to baseline Follow-up Care/Observations: per hospitalist Post-Anesthesia Complications: none Follow-up care needed: N/A Jennifer Amanda CRNA Oct 07, 2018 13:58
--- NOTE | 2018-10-07 14:40 | General Progress Note ---
Assessment/Plan Problem List: (1) Malnutrition ICD Codes: E46 - Unspecified protein-calorie malnutrition SNOMED: 59546484 (2) UTI (urinary tract infection) ICD Codes: N39.0 - Urinary tract infection, site not specified SNOMED: 59769556 Qualifiers: Qualified Codes: N39.0 - Urinary tract infection, site not specified (3) Coffee ground emesis ICD Codes: K92.0 - Hematemesis SNOMED: 50318787 (4) GI bleed ICD Codes: K92.2 - Gastrointestinal hemorrhage, unspecified SNOMED: 31517662 (5) Anemia ICD Codes: D64.9 - Anemia, unspecified SNOMED: 894182477 Status: unchanged Assessment/Plan pt diet abx gi f/u cbc bmp am dc plan snf vs psyc if clear Subjective Allergies: Coded Allergies: No Known Allergies (Verified , 02/28/10) All Systems: reviewed and negative except above Subjective calm in bed Objective Last 24 Hour Vital Signs Date Time Temp Pulse Resp B/P (MAP) Pulse Ox O2 Delivery O2 Flow Rate FiO2 10/07/18 13:58 86 20 100 10/07/18 12:00 98.1 86 20 136/73 (94) 100 66 10/07/18 09:39 Room Air 10/07/18 08:00 98.1 66 18 132/77 (95) 66 10/07/18 04:27 98.3 84 18 152/90 (110) 84 10/07/18 00:00 98.3 78 18 129/78 (95) 98 10/06/18 21:25 Room Air 10/06/18 20:00 98.6 97 18 163/96 (118) 97 10/06/18 16:00 97.1 74 20 133/79 (97) 95 Intake and Output 10/06/18 10/07/18 19:00 07:00 Intake Total 50 ml Balance 50 ml IV Total 50 ml # Voids 4 1 Laboratory Tests 10/07/18 05:50: White Blood Count 8.2, Red Blood Count 3.84L, Hemoglobin 11.7L, Hematocrit 35.1L , Mean Corpuscular Volume 91, Mean Corpuscular Hemoglobin 30.6, Mean Corpuscular Hemoglobin Concent 33.5, Red Cell Distribution Width 12.1, Platelet Count 247, Mean Platelet Volume 6.2L, Neutrophils (%) (Auto) 76.2H, Lymphocytes (%) (Auto) 11.2L, Monocytes (%) (Auto) 8.6, Eosinophils (%) (Auto) 2.2, Basophils (%) (Auto) 1.9, Sodium Level 141, Potassium Level 3.4L, Chloride Level 108H, Carbon Dioxide Level 27, Anion Gap 6, Blood Urea Nitrogen 7, Creatinine 0.7, Estimat Glomerular Filtration Rate , Glucose Level 81, Calcium Level 9.0 Height (Feet): 5 Height (Inches): 2.00 Weight (Pounds): 110 General Appearance: lethargic, confused EENT: normal ENT inspection Neck: normal alignment Cardiovascular: normal peripheral pulses, normal rate, regular rhythm Respiratory/Chest: chest wall non-tender, lungs clear, normal breath sounds Abdomen: normal bowel sounds, non tender, soft Extremities: normal inspection Edema: no edema noted Arm (L), no edema noted Arm (R), no edema noted Leg (L), no edema noted Leg (R), no edema noted Pedal (L), no edema noted Pedal (R), no edema noted Generalized Neurologic: motor weakness Skin: normal pigmentation, warm/dry Shamar Crane DO Oct 07, 2018 14:40
--- NOTE | 2018-10-07 15:14 | Pulmonology Progress Note ---
Assessment/Plan Problems: (1) Upper gastrointestinal bleed (2) Coffee ground emesis (3) Protein-calorie malnutrition, severe (4) Psychosis (5) Dementia Assessment/Plan EGD done, showing gastritis dcNPO start feeding, iv fluids, the same rate H2 blockers check electrolytes continue psych meds prbc prn GI evaluation Subjective ROS Limited/Unobtainable: No Constitutional: Reports: no symptoms HEENT: Repors: no symptoms Respiratory: Reports: no symptoms Allergies: Coded Allergies: No Known Allergies (Verified , 02/28/10) Objective Last 24 Hour Vital Signs Date Time Temp Pulse Resp B/P (MAP) Pulse Ox O2 Delivery O2 Flow Rate FiO2 10/07/18 13:58 86 20 100 10/07/18 12:00 98.1 86 20 136/73 (94) 100 66 10/07/18 09:39 Room Air 10/07/18 08:00 98.1 66 18 132/77 (95) 66 10/07/18 04:27 98.3 84 18 152/90 (110) 84 10/07/18 00:00 98.3 78 18 129/78 (95) 98 10/06/18 21:25 Room Air 10/06/18 20:00 98.6 97 18 163/96 (118) 97 10/06/18 16:00 97.1 74 20 133/79 (97) 95 Intake and Output 10/06/18 10/07/18 19:00 07:00 Intake Total 50 ml Balance 50 ml IV Total 50 ml # Voids 4 1 Objective General Appearance: WD/WN HEENT: normocephalic Respiratory/Chest: chest wall non-tender, lungs clear, normal breath sounds Breasts: no masses Cardiovascular: normal peripheral pulses, normal rate Abdomen: normal bowel sounds, soft, non tender Extremities: no cyanosis Skin: no rash Microbiology Date/Time Source Procedure Growth Status 10/05/18 14:06 Nasal Nares MRSA Culture - Final NO METHICILLIN RESISTANT STAPH AUREUS... Complete 10/05/18 14:08 Urine,Clean Catch Urine Culture - Preliminary Gram Negative Bacillus 1 Resulted 10/05/18 14:06 Rectum VRE Culture - Final NO VANCOMYCIN RESISTANT ENTEROCOCCUS ... Complete 10/05/18 14:06 Rectum - Final NO CARBAPENEM-RESISTANT ENTEROBACTERI... Complete Laboratory Tests 10/07/18 05:50: White Blood Count 8.2, Red Blood Count 3.84L, Hemoglobin 11.7L, Hematocrit 35.1L , Mean Corpuscular Volume 91, Mean Corpuscular Hemoglobin 30.6, Mean Corpuscular Hemoglobin Concent 33.5, Red Cell Distribution Width 12.1, Platelet Count 247, Mean Platelet Volume 6.2L, Neutrophils (%) (Auto) 76.2H, Lymphocytes (%) (Auto) 11.2L, Monocytes (%) (Auto) 8.6, Eosinophils (%) (Auto) 2.2, Basophils (%) (Auto) 1.9, Sodium Level 141, Potassium Level 3.4L, Chloride Level 108H, Carbon Dioxide Level 27, Anion Gap 6, Blood Urea Nitrogen 7, Creatinine 0.7, Estimat Glomerular Filtration Rate , Glucose Level 81, Calcium Level 9.0 Current Medications Medications (Trade) Dose Ordered Sig/Luis Route PRN Reason Start Time Stop Time Status Last Admin Dose Admin Acetaminophen (Tylenol) 650 mg Q4H PRN ORAL fever 10/05/18 14:30 11/04/18 14:29 Al Hydroxide/Mg Hydroxide (Mylanta II) 30 ml Q6H PRN ORAL dyspepsia 10/05/18 14:33 11/04/18 14:32 Atorvastatin Calcium (Lipitor) 20 mg BEDTIME ORAL 10/05/18 21:00 11/04/18 20:59 10/06/18 20:13 Dextrose (Dextrose 50%) 25 ml Q30M PRN IV Hypoglycemia 10/05/18 14:30 11/04/18 14:29 Dextrose (Dextrose 50%) 50 ml Q30M PRN IV Hypoglycemia 10/05/18 14:30 11/04/18 14:29 Dextrose/Sodium Chloride 1,000 ml @ 100 mls/hr Q10H IV 10/05/18 14:28 11/04/18 14:27 10/06/18 03:52 Diphenhydramine HCl (Benadryl) 25 mg Q6H PRN ORAL Itching/Pruritis 10/05/18 14:30 11/04/18 14:29 Donepezil HCl (Aricept) 5 mg BEDTIME ORAL 10/05/18 21:00 11/04/18 20:59 10/06/18 20:14 Lorazepam (Ativan 2mg/ml 1ml) 1 mg Q6H PRN IV For Anxiety 10/05/18 17:00 10/12/18 16:59 10/07/18 09:07 Ondansetron HCl (Zofran) 4 mg Q6H PRN IVP Nausea & Vomiting 10/05/18 14:30 11/04/18 14:29 Pantoprazole (Protonix) 40 mg EVERY 12 HOURS IVP 10/05/18 21:00 11/04/18 20:59 10/07/18 09:06 Temazepam (Restoril) 15 mg HSPRN PRN ORAL Insomnia 10/05/18 14:30 10/12/18 14:29 Matt Alegre MD Oct 07, 2018 15:14
[2018-10-07 16:00] VITALS: BP 149/92
--- NOTE | 2018-10-07 17:12 | NUR ---
P.T Note: late entry 1500 P.T evaluation attempted however unsuccessful due to patient was highly confused and uncooperative. Will reattempt tomorrow.
--- NOTE | 2018-10-07 18:32 | Infectious Diseases Prog Note ---
Assessment/Plan Assessment/Plan Abx: None Assessment: Leukocytosis- suspect reactive to coffee ground emesis; resolved off abx -CXR: Hypoventilatory exam with bilateral basilar atelectatic changes. No definite acute process otherwise Afebrile Pyuria -u/a wbc 15-20, nit neg, leuk +3; ucx 30-40k GNR HLD Dementia Plan: -Continue to monitor off abx unless febrile, increasing WBC and/or HD instability -f/u cx -Monitor CBC/CMP, temperatures Thank you for this consultation. Will continue to follow along with you. Discussed with RN. Subjective Allergies: Coded Allergies: No Known Allergies (Verified , 02/28/10) Subjective afebrile no leukocytosis off abx Objective Vital Signs Last 24 Hour Vital Signs Date Time Temp Pulse Resp B/P (MAP) Pulse Ox O2 Delivery O2 Flow Rate FiO2 10/07/18 16:00 97.1 82 20 149/92 (111) 100 66 10/07/18 13:58 86 20 100 10/07/18 12:00 98.1 86 20 136/73 (94) 100 66 10/07/18 09:39 Room Air 10/07/18 08:00 98.1 66 18 132/77 (95) 66 10/07/18 04:27 98.3 84 18 152/90 (110) 84 10/07/18 00:00 98.3 78 18 129/78 (95) 98 10/06/18 21:25 Room Air 10/06/18 20:00 98.6 97 18 163/96 (118) 97 Height (Feet): 5 Height (Inches): 2.00 Weight (Pounds): 110 Objective General Appearance: well appearing, no apparent distress, alert, thin HEENT: normocephalic, PERRL/EOMI, normal ENT inspection Neck: supple Respiratory: normal breath sounds, no respiratory distress Cardiovascular: normal rate Gastrointestinal: normal inspection, non tender, soft, normal bowel sounds, non -distended Musculoskeletal: normal inspection, back normal Neurologic: alert, responsive Skin: normal inspection, normal color, no rash, warm/dry, palpation normal, well hydrated Microbiology Date/Time Source Procedure Growth Status 10/05/18 14:06 Nasal Nares MRSA Culture - Final NO METHICILLIN RESISTANT STAPH AUREUS... Complete 10/05/18 14:08 Urine,Clean Catch Urine Culture - Preliminary Gram Negative Bacillus 1 Resulted 10/05/18 14:06 Rectum VRE Culture - Final NO VANCOMYCIN RESISTANT ENTEROCOCCUS ... Complete 10/05/18 14:06 Rectum - Final NO CARBAPENEM-RESISTANT ENTEROBACTERI... Complete Laboratory Tests Test 10/07/18 05:50 White Blood Count 8.2 K/UL (4.8-10.8) Red Blood Count 3.84 M/UL (4.20-5.40) L Hemoglobin 11.7 G/DL (12.0-16.0) L Hematocrit 35.1 % (37.0-47.0) L Mean Corpuscular Volume 91 FL (80-99) Mean Corpuscular Hemoglobin 30.6 PG (27.0-31.0) Mean Corpuscular Hemoglobin Concent 33.5 G/DL (32.0-36.0) Red Cell Distribution Width 12.1 % (11.6-14.8) Platelet Count 247 K/UL (150-450) Mean Platelet Volume 6.2 FL (6.5-10.1) L Neutrophils (%) (Auto) 76.2 % (45.0-75.0) H Lymphocytes (%) (Auto) 11.2 % (20.0-45.0) L Monocytes (%) (Auto) 8.6 % (1.0-10.0) Eosinophils (%) (Auto) 2.2 % (0.0-3.0) Basophils (%) (Auto) 1.9 % (0.0-2.0) Sodium Level 141 MMOL/L (136-145) Potassium Level 3.4 MMOL/L (3.5-5.1) L Chloride Level 108 MMOL/L (98-107) H Carbon Dioxide Level 27 MMOL/L (21-32) Anion Gap 6 mmol/L (5-15) Blood Urea Nitrogen 7 mg/dL (7-18) Creatinine 0.7 MG/DL (0.55-1.30) Estimat Glomerular Filtration Rate mL/min (>60) Glucose Level 81 MG/DL (74-106) Calcium Level 9.0 MG/DL (8.5-10.1) Current Medications Medications (Trade) Dose Ordered Sig/Luis Route PRN Reason Start Time Stop Time Status Last Admin Dose Admin Acetaminophen (Tylenol) 650 mg Q4H PRN ORAL fever 10/05/18 14:30 11/04/18 14:29 Al Hydroxide/Mg Hydroxide (Mylanta II) 30 ml Q6H PRN ORAL dyspepsia 10/05/18 14:33 11/04/18 14:32 Atorvastatin Calcium (Lipitor) 20 mg BEDTIME ORAL 10/05/18 21:00 11/04/18 20:59 10/06/18 20:13 Dextrose (Dextrose 50%) 25 ml Q30M PRN IV Hypoglycemia 10/05/18 14:30 11/04/18 14:29 Dextrose (Dextrose 50%) 50 ml Q30M PRN IV Hypoglycemia 10/05/18 14:30 11/04/18 14:29 Dextrose/Sodium Chloride 1,000 ml @ 100 mls/hr Q10H IV 10/05/18 14:28 11/04/18 14:27 10/06/18 03:52 Donepezil HCl (Aricept) 5 mg BEDTIME ORAL 10/05/18 21:00 11/04/18 20:59 10/06/18 20:14 Lorazepam (Ativan 2mg/ml 1ml) 1 mg Q6H PRN IV For Anxiety 10/05/18 17:00 10/12/18 16:59 10/07/18 16:06 Pantoprazole (Protonix) 40 mg EVERY 12 HOURS IVP 10/05/18 21:00 11/04/18 20:59 10/07/18 09:06 Temazepam (Restoril) 15 mg HSPRN PRN ORAL Insomnia 10/05/18 14:30 10/12/18 14:29 Miley Worthington M.D. Oct 07, 2018 18:32
--- NOTE | 2018-10-07 19:24 | NUR ---
HAND-OFF: Report given to LUIZA whittaker.
--- NOTE | 2018-10-07 19:54 | NUR ---
NURSE NOTES: Pt received awake, bed in lowest position, side rails up, but attempting to get out of bed, soft bilateral wrist restraints in place, will continue to monitor pt to keep agitation at a minimum.
[2018-10-07 20:00] VITALS: BP 157/87
[2018-10-07] MEDS: Donepezil 5mg Tab ORAL SCH (20:39)
--- NOTE | 2018-10-07 23:15 | Consultation ---
DATE OF CONSULTATION: 10/06/2018 CONSULTATION PROGRESS NOTE: CONSULTING PHYSICIAN: Lorin Black PsyD. TREATING ATTENDING PHYSICIAN: Shamar Crane D.O. HISTORY OF PRESENT ILLNESS: The patient is an 83-year-old female patient from [facility]. Telephone Technician was utilized at this time for this patient. The patient was admitted to the hospital due to experiencing upper gastrointestinal bleeding with coffee-ground emesis and was found to have acute GI bleeding. The patient has been confused, disoriented. For this reason, she was referred to psychotherapeutic services. Upon assessment, the patient is very confused. When asked from where she is, she states she is here. When asked why she is in the hospital, she states I do not know. She was unable to recall her date of . She constantly states that she wants to go home. At this time, she has very poor insight into her current medical condition. Her current mental status is oriented to person and place and she is oriented. The patient's mood has been slightly anxious; however, the patient has been very cooperative with nursing staff and with treatment according to nursing staff and confused, disorganized, often agitated and irritable as well. At times has been she was initially admitted to the hospital. suicidal or homicidal thoughts of ideation. There is no indication of auditory or visual hallucinations for this patient. PAST MEDICAL HISTORY: Include a history of anemia, PUD, encephalopathy. ALLERGIES: The patient has no known drug allergies. SUBSTANCE ABUSE HISTORY: There is no indication of alcohol use, illicit substance, or smoking cigarettes. PSYCHIATRIC HISTORY: The patient does not have a significant psychiatric history at this time. SOCIAL HISTORY: The patient is an 83-year-old female patient from [facility]. Financially sustained through [facility]. MENTAL STATUS EXAMINATION: The patient is alert and oriented to person and place. Mood is dysphoric. Affect blunted. Thought process, disorganized. Thought content, confused. Poor attention and concentration. Poor insight, judgment, impulse control. DIAGNOSES: 1. Rule out generalized anxiety disorder. 2. Rule out major neurocognitive disorder, Alzheimer's type without behavioral disturbances. Assessed this patient. 3. Provided this patient with reality orientation, supportive psychotherapy, cognitive function. The patient is still confused and disoriented. Oriented to person, place, time, and situation. 4. Provide the patient with communicate with this clinician. PLAN: cognitive behaviors, psychotherapy, and provide the patient with reality orientation. This clinician has reviewed the patient's chart. Discussed treatment with treatment team . Lorin Black PsyD. DR: WILLIAN JOB#: [id number] CC:
[2018-10-08] VITALS (7 sets, daily range): BP systolic 143–164; BP diastolic 82–100
[2018-10-08] MEDS: D5NS 1,000 ML IV SCH ×4 (02:45→22:28)
[2018-10-08 06:54] LABS: BASOPHILS % (AUTO) 0.6 % (0.0-2.0); EOSINOPHILS % (AUTO) 2.5 % (0.0-3.0); LYMPHOCYTES % (AUTO) 17.4 % (20.0-45.0); MEAN CORPUSCULAR VOLUME 92 FL (80-99); MONOCYTES % (AUTO) 6.7 % (1.0-10.0); NEUTROPHILS % (AUTO) 72.7 % (45.0-75.0); PLATELET COUNT 255 K/UL (150-450); RED BLOOD COUNT 3.92 M/UL (4.20-5.40); RED CELL DISTRIBUTION WIDTH 12.4 % (11.6-14.8); WHITE BLOOD COUNT 8.4 K/UL (4.8-10.8)
[2018-10-08 06:57] LABS: ANION GAP 6 mmol/L (5-15); BLOOD UREA NITROGEN 10 mg/dL (7-18); CALCIUM 8.7 MG/DL (8.5-10.1); CARBON DIOXIDE 26 MMOL/L (21-32); CHLORIDE 110 MMOL/L (98-107); CREATININE 0.7 MG/DL (0.55-1.30); POTASSIUM 3.6 MMOL/L (3.5-5.1); SODIUM 142 MMOL/L (136-145)
--- NOTE | 2018-10-08 07:16 | NUR ---
HAND-OFF: Report given to LUIZA Aceves.
--- NOTE | 2018-10-08 07:23 | Pulmonology Progress Note ---
Assessment/Plan Assessment/Plan ASSESSMENT Upper GI bleeding /coffee ground emesis s/p EGD gastritis esophagitis severe protein calorie malnutrition leukocytosis resolved, likely reactive pyuria dementia PLAN OF CARE MS floor gentle IVF tolerates deit, PPI dietary recs implemented in POC continue statin no abx as per ID recs unless febrile or HD unstable, leuk was likely reactive urine cx + GNB but colony count 60-70K only Venous Duplex pending O2 HHN prn CXR stable PT Rx supportive care bowel regimen placement pending case discussed and evaluated by supervising physician Subjective Allergies: Coded Allergies: No Known Allergies (Verified , 02/28/10) Subjective leuk resolved remains afebrile, pulse ox stable on RA Objective Last 24 Hour Vital Signs Date Time Temp Pulse Resp B/P (MAP) Pulse Ox O2 Delivery O2 Flow Rate FiO2 10/08/18 04:00 97.5 67 18 158/82 (107) 100 67 10/08/18 00:00 97.9 71 20 152/84 (106) 98 71 10/07/18 21:00 Room Air 10/07/18 20:00 98.1 93 18 157/87 (110) 96 93 10/07/18 16:00 97.1 82 20 149/92 (111) 100 66 10/07/18 13:58 86 20 100 10/07/18 12:00 98.1 86 20 136/73 (94) 100 66 10/07/18 09:39 Room Air 10/07/18 08:00 98.1 66 18 132/77 (95) 66 Intake and Output 10/07/18 10/08/18 18:59 06:59 Intake Total 790 ml 120 ml Output Total 300 ml Balance 490 ml 120 ml Intake Oral 390 ml 120 ml IV Total 400 ml Output Urine Total 300 ml # Voids 3 General Appearance: no acute distress, other - elderly, confused female HEENT: normocephalic, atraumatic, anicteric, mucous membranes moist Respiratory/Chest: lungs clear, no accessory muscle use Cardiovascular: normal peripheral pulses, normal rate, no JVD Abdomen: normal bowel sounds, soft, non tender, non distended Genitourinary: other - incontinent Extremities: no edema Neurologic/Psychiatric: abnormal gait, alert - confused Musculoskeletal: atrophy - BLE Microbiology Date/Time Source Procedure Growth Status 10/05/18 14:06 Nasal Nares MRSA Culture - Final NO METHICILLIN RESISTANT STAPH AUREUS... Complete 10/05/18 14:08 Urine,Clean Catch Urine Culture - Preliminary Gram Negative Bacillus 1 Resulted 10/05/18 14:06 Rectum VRE Culture - Final NO VANCOMYCIN RESISTANT ENTEROCOCCUS ... Complete 10/05/18 14:06 Rectum - Final NO CARBAPENEM-RESISTANT ENTEROBACTERI... Complete Laboratory Tests 10/08/18 05:05: White Blood Count 8.4, Red Blood Count 3.92L, Hemoglobin 12.0, Hematocrit 36.0L , Mean Corpuscular Volume 92, Mean Corpuscular Hemoglobin 30.7, Mean Corpuscular Hemoglobin Concent 33.5, Red Cell Distribution Width 12.4, Platelet Count 255, Mean Platelet Volume 6.2L, Neutrophils (%) (Auto) 72.7, Lymphocytes ( %) (Auto) 17.4L, Monocytes (%) (Auto) 6.7, Eosinophils (%) (Auto) 2.5, Basophils (%) (Auto) 0.6, Sodium Level 142, Potassium Level 3.6, Chloride Level 110H, Carbon Dioxide Level 26, Anion Gap 6, Blood Urea Nitrogen 10, Creatinine 0.7, Estimat Glomerular Filtration Rate , Glucose Level 94, Calcium Level 8.7 Current Medications Medications (Trade) Dose Ordered Sig/Luis Route PRN Reason Start Time Stop Time Status Last Admin Dose Admin Acetaminophen (Tylenol) 650 mg Q4H PRN ORAL fever 10/05/18 14:30 11/04/18 14:29 Al Hydroxide/Mg Hydroxide (Mylanta II) 30 ml Q6H PRN ORAL dyspepsia 10/05/18 14:33 11/04/18 14:32 Atorvastatin Calcium (Lipitor) 20 mg BEDTIME ORAL 10/05/18 21:00 11/04/18 20:59 10/07/18 20:40 Dextrose (Dextrose 50%) 25 ml Q30M PRN IV Hypoglycemia 10/05/18 14:30 11/04/18 14:29 Dextrose (Dextrose 50%) 50 ml Q30M PRN IV Hypoglycemia 10/05/18 14:30 11/04/18 14:29 Dextrose/Sodium Chloride 1,000 ml @ 100 mls/hr Q10H IV 10/05/18 14:28 11/04/18 14:27 10/08/18 02:45 Donepezil HCl (Aricept) 5 mg BEDTIME ORAL 10/05/18 21:00 11/04/18 20:59 10/07/18 20:39 Lorazepam (Ativan 2mg/ml 1ml) 1 mg Q6H PRN IV For Anxiety 10/05/18 17:00 10/12/18 16:59 10/07/18 16:06 Pantoprazole (Protonix) 40 mg EVERY 12 HOURS IVP 10/05/18 21:00 11/04/18 20:59 10/07/18 20:41 Temazepam (Restoril) 15 mg HSPRN PRN ORAL Insomnia 10/05/18 14:30 10/12/18 14:29 10/07/18 20:39 Carolin Adamson COATING MIXER Oct 08, 2018 07:23
--- NOTE | 2018-10-08 07:23 | NUR ---
NURSE NOTES: received report from LUIZA Robert. an in bed. no respiratory distress noted. no c/o pain at this time. bed in the lowest position. alarm on. soft restraint in place. IV intact. call light within reach. will continue to monitor.
[2018-10-08] MEDS: Pantoprazole Inj IVP SCH ×2 (08:07→21:01)
--- NOTE | 2018-10-08 08:51 | General Progress Note ---
Assessment/Plan Problem List: (1) Malnutrition ICD Codes: E46 - Unspecified protein-calorie malnutrition SNOMED: 17229281 (2) UTI (urinary tract infection) ICD Codes: N39.0 - Urinary tract infection, site not specified SNOMED: 03376106 Qualifiers: Qualified Codes: N39.0 - Urinary tract infection, site not specified (3) Coffee ground emesis ICD Codes: K92.0 - Hematemesis SNOMED: 55513734 (4) GI bleed ICD Codes: K92.2 - Gastrointestinal hemorrhage, unspecified SNOMED: 16468716 (5) Anemia ICD Codes: D64.9 - Anemia, unspecified SNOMED: 414559655 Status: unchanged Assessment/Plan pt diet abx gi f/u cbc bmp am dc plan snf vs psyc if clear Subjective Constitutional: Reports: weakness Allergies: Coded Allergies: No Known Allergies (Verified , 02/28/10) All Systems: reviewed and negative except above Subjective calm in bed Objective Last 24 Hour Vital Signs Date Time Temp Pulse Resp B/P (MAP) Pulse Ox O2 Delivery O2 Flow Rate FiO2 10/08/18 04:00 97.5 67 18 158/82 (107) 100 67 10/08/18 00:00 97.9 71 20 152/84 (106) 98 71 10/07/18 21:00 Room Air 10/07/18 20:00 98.1 93 18 157/87 (110) 96 93 10/07/18 16:00 97.1 82 20 149/92 (111) 100 66 10/07/18 13:58 86 20 100 10/07/18 12:00 98.1 86 20 136/73 (94) 100 66 10/07/18 09:39 Room Air Intake and Output 10/07/18 10/08/18 18:59 06:59 Intake Total 790 ml 120 ml Output Total 300 ml Balance 490 ml 120 ml Intake Oral 390 ml 120 ml IV Total 400 ml Output Urine Total 300 ml # Voids 3 Laboratory Tests 10/08/18 05:05: White Blood Count 8.4, Red Blood Count 3.92L, Hemoglobin 12.0, Hematocrit 36.0L , Mean Corpuscular Volume 92, Mean Corpuscular Hemoglobin 30.7, Mean Corpuscular Hemoglobin Concent 33.5, Red Cell Distribution Width 12.4, Platelet Count 255, Mean Platelet Volume 6.2L, Neutrophils (%) (Auto) 72.7, Lymphocytes ( %) (Auto) 17.4L, Monocytes (%) (Auto) 6.7, Eosinophils (%) (Auto) 2.5, Basophils (%) (Auto) 0.6, Sodium Level 142, Potassium Level 3.6, Chloride Level 110H, Carbon Dioxide Level 26, Anion Gap 6, Blood Urea Nitrogen 10, Creatinine 0.7, Estimat Glomerular Filtration Rate , Glucose Level 94, Calcium Level 8.7 Height (Feet): 5 Height (Inches): 2.00 Weight (Pounds): 110 General Appearance: lethargic, confused EENT: normal ENT inspection Neck: normal alignment Cardiovascular: normal peripheral pulses, normal rate, regular rhythm Respiratory/Chest: chest wall non-tender, lungs clear, normal breath sounds Abdomen: normal bowel sounds, non tender, soft Neurologic: motor weakness Skin: normal pigmentation, warm/dry Shamar Crane DO Oct 08, 2018 08:51
--- NOTE | 2018-10-08 11:02 | Infectious Diseases Prog Note ---
Assessment/Plan Assessment/Plan Abx: None Assessment: Leukocytosis- suspect reactive to coffee ground emesis; resolved off abx -CXR: Hypoventilatory exam with bilateral basilar atelectatic changes. No definite acute process otherwise Afebrile Pyuria -u/a wbc 15-20, nit neg, leuk +3; ucx 60-70k GNR; likely colonizer HLD Dementia Plan: -Continue to monitor off abx unless febrile, increasing WBC and/or HD instability -f/u cx -Monitor CBC/CMP, temperatures Thank you for this consultation. Will continue to follow along with you. Discussed with RN. Subjective Allergies: Coded Allergies: No Known Allergies (Verified , 02/28/10) Subjective afebrile no leukocytosis off abx Objective Vital Signs Last 24 Hour Vital Signs Date Time Temp Pulse Resp B/P (MAP) Pulse Ox O2 Delivery O2 Flow Rate FiO2 10/08/18 09:00 Room Air 10/08/18 08:00 97.8 88 18 148/93 (111) 99 88 10/08/18 04:00 97.5 67 18 158/82 (107) 100 67 10/08/18 00:00 97.9 71 20 152/84 (106) 98 71 10/07/18 21:00 Room Air 10/07/18 20:00 98.1 93 18 157/87 (110) 96 93 10/07/18 16:00 97.1 82 20 149/92 (111) 100 66 10/07/18 13:58 86 20 100 10/07/18 12:00 98.1 86 20 136/73 (94) 100 66 Height (Feet): 5 Height (Inches): 2.00 Weight (Pounds): 110 Objective General Appearance: well appearing, no apparent distress, alert, thin HEENT: normocephalic, PERRL/EOMI, normal ENT inspection Neck: supple Respiratory: normal breath sounds, no respiratory distress Cardiovascular: normal rate Gastrointestinal: normal inspection, non tender, soft, normal bowel sounds, non -distended Musculoskeletal: normal inspection, back normal Neurologic: alert, responsive Skin: normal inspection, normal color, no rash, warm/dry, palpation normal, well hydrated Microbiology Date/Time Source Procedure Growth Status 10/05/18 14:06 Nasal Nares MRSA Culture - Final NO METHICILLIN RESISTANT STAPH AUREUS... Complete 10/05/18 14:08 Urine,Clean Catch Urine Culture - Preliminary Gram Negative Bacillus 1 Resulted 10/05/18 14:06 Rectum VRE Culture - Final NO VANCOMYCIN RESISTANT ENTEROCOCCUS ... Complete 10/05/18 14:06 Rectum - Final NO CARBAPENEM-RESISTANT ENTEROBACTERI... Complete Laboratory Tests Test 10/08/18 05:05 White Blood Count 8.4 K/UL (4.8-10.8) Red Blood Count 3.92 M/UL (4.20-5.40) L Hemoglobin 12.0 G/DL (12.0-16.0) Hematocrit 36.0 % (37.0-47.0) L Mean Corpuscular Volume 92 FL (80-99) Mean Corpuscular Hemoglobin 30.7 PG (27.0-31.0) Mean Corpuscular Hemoglobin Concent 33.5 G/DL (32.0-36.0) Red Cell Distribution Width 12.4 % (11.6-14.8) Platelet Count 255 K/UL (150-450) Mean Platelet Volume 6.2 FL (6.5-10.1) L Neutrophils (%) (Auto) 72.7 % (45.0-75.0) Lymphocytes (%) (Auto) 17.4 % (20.0-45.0) L Monocytes (%) (Auto) 6.7 % (1.0-10.0) Eosinophils (%) (Auto) 2.5 % (0.0-3.0) Basophils (%) (Auto) 0.6 % (0.0-2.0) Sodium Level 142 MMOL/L (136-145) Potassium Level 3.6 MMOL/L (3.5-5.1) Chloride Level 110 MMOL/L (98-107) H Carbon Dioxide Level 26 MMOL/L (21-32) Anion Gap 6 mmol/L (5-15) Blood Urea Nitrogen 10 mg/dL (7-18) Creatinine 0.7 MG/DL (0.55-1.30) Estimat Glomerular Filtration Rate mL/min (>60) Glucose Level 94 MG/DL (74-106) Calcium Level 8.7 MG/DL (8.5-10.1) Current Medications Medications (Trade) Dose Ordered Sig/Luis Route PRN Reason Start Time Stop Time Status Last Admin Dose Admin Acetaminophen (Tylenol) 650 mg Q4H PRN ORAL fever 10/05/18 14:30 11/04/18 14:29 Al Hydroxide/Mg Hydroxide (Mylanta II) 30 ml Q6H PRN ORAL dyspepsia 10/05/18 14:33 11/04/18 14:32 Atorvastatin Calcium (Lipitor) 20 mg BEDTIME ORAL 10/05/18 21:00 11/04/18 20:59 10/07/18 20:40 Dextrose (Dextrose 50%) 25 ml Q30M PRN IV Hypoglycemia 10/05/18 14:30 11/04/18 14:29 Dextrose (Dextrose 50%) 50 ml Q30M PRN IV Hypoglycemia 10/05/18 14:30 11/04/18 14:29 Dextrose/Sodium Chloride 1,000 ml @ 100 mls/hr Q10H IV 10/05/18 14:28 11/04/18 14:27 10/08/18 02:45 Donepezil HCl (Aricept) 5 mg BEDTIME ORAL 10/05/18 21:00 11/04/18 20:59 10/07/18 20:39 Lorazepam (Ativan 2mg/ml 1ml) 1 mg Q6H PRN IV For Anxiety 10/05/18 17:00 10/12/18 16:59 10/07/18 16:06 Pantoprazole (Protonix) 40 mg EVERY 12 HOURS IVP 10/05/18 21:00 11/04/18 20:59 10/08/18 08:07 Temazepam (Restoril) 15 mg HSPRN PRN ORAL Insomnia 10/05/18 14:30 10/12/18 14:29 10/07/18 20:39 Miley Worthington M.D. Oct 08, 2018 11:01
[2018-10-08] MEDS: LORazepam Inj 2mg/ml 1ml IV PRN ×2 (13:09→21:25)
--- NOTE | 2018-10-08 16:44 | NUR ---
PT Note PT jamil completed, treatment initiated. Patient required constant redirection to task and required [id number] techniques for all tasks to observe safety precautions. Pt can benefit from PT services to increase her muscle strength and balance to improve her safety in mobility and gait. Addendum: 10/08/18 at 1645 by RENE HOBBS PT Amended: Links added.
--- NOTE | 2018-10-08 18:22 | General Progress Note ---
Assessment/Plan Assessment/Plan Assessment/Plan Problems: (1) Upper gastrointestinal bleed ICD Codes: K92.2 - Gastrointestinal hemorrhage, unspecified SNOMED: 60210919 (2) Dementia ICD Codes: F03.90 - Unspecified dementia without behavioral disturbance SNOMED: 14724962 Qualifiers: Qualified Codes: F03.91 - Unspecified dementia with behavioral disturbance (3) Malnutrition ICD Codes: E46 - Unspecified protein-calorie malnutrition SNOMED: 01062511 (4) GI bleed ICD Codes: K92.2 - Gastrointestinal hemorrhage, unspecified SNOMED: 14861742 (5) Coffee ground emesis ICD Codes: K92.0 - Hematemesis SNOMED: 70555719 (6) PUD (peptic ulcer disease) ICD Codes: K27.9 - Peptic ulcer, site unspecified, unspecified as acute or chronic, without hemorrhage or perforation SNOMED: 36274941 (7) Gastritis ICD Codes: K29.70 - Gastritis, unspecified, without bleeding SNOMED: 5699028 (8) Anemia ICD Codes: D64.9 - Anemia, unspecified SNOMED: 433561924 Status: stable Assessment/Plan SUMMARY OF FINDINGS: 1. Distal esophagitis, most probably the source of bleeding. 2. Gastritis, status post biopsy. RECOMMENDATIONS: 1. PPI daily. 2. Reflux measures. 3. Resume diet. 4. Discharge planning per primary team Subjective Allergies: Coded Allergies: No Known Allergies (Verified , 02/28/10) Subjective Agitated when examined d/w staff development manager d/c planning noted Objective Last 24 Hour Vital Signs Date Time Temp Pulse Resp B/P (MAP) Pulse Ox O2 Delivery O2 Flow Rate FiO2 10/08/18 16:00 98.0 75 18 143/100 (114) 98 75 10/08/18 12:00 98.2 78 18 144/85 (104) 99 78 10/08/18 09:00 Room Air 10/08/18 08:00 97.8 88 18 148/93 (111) 99 88 10/08/18 04:00 97.5 67 18 158/82 (107) 100 67 10/08/18 00:00 97.9 71 20 152/84 (106) 98 71 10/07/18 21:00 Room Air 10/07/18 20:00 98.1 93 18 157/87 (110) 96 93 Intake and Output 10/07/18 10/08/18 19:00 07:00 Intake Total 790 ml 120 ml Output Total 300 ml Balance 490 ml 120 ml Intake Oral 390 ml 120 ml IV Total 400 ml Output Urine Total 300 ml # Voids 3 Laboratory Tests 10/08/18 05:05: White Blood Count 8.4, Red Blood Count 3.92L, Hemoglobin 12.0, Hematocrit 36.0L , Mean Corpuscular Volume 92, Mean Corpuscular Hemoglobin 30.7, Mean Corpuscular Hemoglobin Concent 33.5, Red Cell Distribution Width 12.4, Platelet Count 255, Mean Platelet Volume 6.2L, Neutrophils (%) (Auto) 72.7, Lymphocytes ( %) (Auto) 17.4L, Monocytes (%) (Auto) 6.7, Eosinophils (%) (Auto) 2.5, Basophils (%) (Auto) 0.6, Sodium Level 142, Potassium Level 3.6, Chloride Level 110H, Carbon Dioxide Level 26, Anion Gap 6, Blood Urea Nitrogen 10, Creatinine 0.7, Estimat Glomerular Filtration Rate , Glucose Level 94, Calcium Level 8.7 Height (Feet): 5 Height (Inches): 2.00 Weight (Pounds): 110 Objective WDWN NCAT supple CTA RR abd soft ND no edema agitated Fiordaliza Euceda MD Oct 08, 2018 18:22
--- NOTE | 2018-10-08 19:04 | NUR ---
HAND-OFF: Report given to LUIZA Dos Santos.
--- NOTE | 2018-10-08 19:45 | NUR ---
NURSE NOTES: Received patient in bed. A/O x 1, on RA, no SOB, no acute distress. Lacho soft restraint in use. Checked circulation and behavior. BEd in lowest position, locked, alarms on. Call light in reach.
[2018-10-08] MEDS: Donepezil 5mg Tab ORAL SCH (21:01)
--- NOTE | 2018-10-08 21:30 | NUR ---
NURSE NOTES: Patient pulled out IV line and got out of bed. When staff tried to help, patient became combative, tried to kick and bite staffs. Patient denied need for toileting. Replaced patient back to bed in comfortable position, reinforced meghann. soft restraints, PRN ativan given. Checked patient became calmer. Will cont monitor closely.
[2018-10-09 04:00] VITALS: BP 145/92
[2018-10-09] MEDS: LORazepam Inj 2mg/ml 1ml IV PRN ×3 (05:22→19:47)
[2018-10-09 06:00] LABS: BASOPHILS % (AUTO) 1.5 % (0.0-2.0); EOSINOPHILS % (AUTO) 1.7 % (0.0-3.0); HEMATOCRIT 34.4 % (37.0-47.0); HEMOGLOBIN 11.7 G/DL (12.0-16.0); LYMPHOCYTES % (AUTO) 8.9 % (20.0-45.0); MEAN CORPUSCULAR VOLUME 90 FL (80-99); MONOCYTES % (AUTO) 6.9 % (1.0-10.0); NEUTROPHILS % (AUTO) 81.1 % (45.0-75.0); PLATELET COUNT 231 K/UL (150-450); RED BLOOD COUNT 3.81 M/UL (4.20-5.40)
[2018-10-09 06:28] LABS: ANION GAP 6 mmol/L (5-15); BLOOD UREA NITROGEN 9 mg/dL (7-18); CALCIUM 8.9 MG/DL (8.5-10.1); CARBON DIOXIDE 28 MMOL/L (21-32); CHLORIDE 108 MMOL/L (98-107); CREATININE 0.7 MG/DL (0.55-1.30); POTASSIUM 2.9 MMOL/L (3.5-5.1); SODIUM 141 MMOL/L (136-145)
--- NOTE | 2018-10-09 07:28 | NUR ---
HAND-OFF: Report given to Gayle Barrientos RN.
--- NOTE | 2018-10-09 07:41 | General Progress Note ---
Assessment/Plan Problem List: (1) Malnutrition ICD Codes: E46 - Unspecified protein-calorie malnutrition SNOMED: 63366293 (2) UTI (urinary tract infection) ICD Codes: N39.0 - Urinary tract infection, site not specified SNOMED: 23781517 Qualifiers: Qualified Codes: N39.0 - Urinary tract infection, site not specified (3) Coffee ground emesis ICD Codes: K92.0 - Hematemesis SNOMED: 99622278 (4) GI bleed ICD Codes: K92.2 - Gastrointestinal hemorrhage, unspecified SNOMED: 38096699 (5) Anemia ICD Codes: D64.9 - Anemia, unspecified SNOMED: 791399769 Status: unchanged Assessment/Plan pt diet abx gi f/u cbc bmp am dc to psyc if clear Subjective Constitutional: Reports: weakness Allergies: Coded Allergies: No Known Allergies (Verified , 02/28/10) All Systems: reviewed and negative except above Subjective calm in bed Objective Last 24 Hour Vital Signs Date Time Temp Pulse Resp B/P (MAP) Pulse Ox O2 Delivery O2 Flow Rate FiO2 10/09/18 04:00 98.0 87 18 145/92 (109) 97 87 10/08/18 22:00 148/90 (109) 10/08/18 21:00 Room Air 10/08/18 20:00 97.8 93 17 164/95 (118) 97 93 10/08/18 16:00 98.0 75 18 143/100 (114) 98 75 10/08/18 12:00 98.2 78 18 144/85 (104) 99 78 10/08/18 09:00 Room Air 10/08/18 08:00 97.8 88 18 148/93 (111) 99 88 Intake and Output 10/08/18 10/09/18 18:59 06:59 Intake Total 1240 ml 600 ml Balance 1240 ml 600 ml Intake Oral 840 ml IV Total 400 ml 600 ml # Voids 7 2 Laboratory Tests 10/09/18 05:40: White Blood Count 10.0, Red Blood Count 3.81L, Hemoglobin 11.7L, Hematocrit 34.4L, Mean Corpuscular Volume 90, Mean Corpuscular Hemoglobin 30.7, Mean Corpuscular Hemoglobin Concent 34.1, Red Cell Distribution Width 12.0, Platelet Count 231, Mean Platelet Volume 6.5, Neutrophils (%) (Auto) 81.1H, Lymphocytes ( %) (Auto) 8.9L, Monocytes (%) (Auto) 6.9, Eosinophils (%) (Auto) 1.7, Basophils (%) (Auto) 1.5, Sodium Level 141, Potassium Level 2.9L, Chloride Level 108H, Carbon Dioxide Level 28, Anion Gap 6, Blood Urea Nitrogen 9, Creatinine 0.7, Estimat Glomerular Filtration Rate , Glucose Level 107H, Calcium Level 8.9 Height (Feet): 5 Height (Inches): 2.00 Weight (Pounds): 110 General Appearance: lethargic EENT: normal ENT inspection Neck: normal alignment Cardiovascular: normal peripheral pulses, normal rate, regular rhythm Respiratory/Chest: chest wall non-tender, lungs clear, normal breath sounds Abdomen: normal bowel sounds, non tender, soft Extremities: normal inspection Edema: no edema noted Arm (L), no edema noted Arm (R), no edema noted Leg (L), no edema noted Leg (R), no edema noted Pedal (L), no edema noted Pedal (R), no edema noted Generalized Neurologic: motor weakness Skin: normal pigmentation, warm/dry Shamar Crane DO Oct 09, 2018 07:41
--- NOTE | 2018-10-09 07:49 | NUR ---
NURSE NOTES: Received patient in bed, awake, patient is confused but follow commands @ this time. No s/s of pain or discomfort per FLACC pain scale. Patient is calm. Restraints in place, no swelling or skin discoloration on hand and wrist. Bed alarm is on, bed is in lowest position and locked. Reminded patient to call nurse if needed.Monitor closely d/t fall precaution. Will continue plan of care.
[2018-10-09 08:00] VITALS: BP 139/86
[2018-10-09] MEDS: Pantoprazole Inj IVP SCH ×2 (08:28→19:46)
--- NOTE | 2018-10-09 08:56 | NUR ---
NURSE NOTES: Rn received order from to give potassium 40MEQ x1 d/t potassium is 2.9
--- NOTE | 2018-10-09 09:29 | Pulmonology Progress Note ---
Assessment/Plan Assessment/Plan ASSESSMENT Upper GI bleeding /coffee ground emesis s/p EGD gastritis esophagitis severe protein calorie malnutrition leukocytosis resolved, likely reactive pyuria dementia hypo K PLAN OF CARE MS floor gentle IVF tolerates diet, PPI dietary recs implemented in POC continue statin no abx as per ID recs unless febrile or HD unstable, leuk was likely reactive urine cx + GNB but colony count 60-70K only Venous Duplex pending O2 HHN prn CXR stable PT Rx supportive care bowel regimen replace K today, check Mg in am SNF placement pending case discussed and evaluated by supervising physician Subjective Allergies: Coded Allergies: No Known Allergies (Verified , 02/28/10) Subjective leuk resolved remains afebrile, pulse ox stable on RA K-2.9 Objective Last 24 Hour Vital Signs Date Time Temp Pulse Resp B/P (MAP) Pulse Ox O2 Delivery O2 Flow Rate FiO2 10/09/18 09:00 Room Air 10/09/18 08:00 98.3 71 18 139/86 (103) 97 10/09/18 04:00 98.0 87 18 145/92 (109) 97 87 10/08/18 22:00 148/90 (109) 10/08/18 21:00 Room Air 10/08/18 20:00 97.8 93 17 164/95 (118) 97 93 10/08/18 16:00 98.0 75 18 143/100 (114) 98 75 10/08/18 12:00 98.2 78 18 144/85 (104) 99 78 Intake and Output 10/08/18 10/09/18 19:00 07:00 Intake Total 1240 ml 600 ml Balance 1240 ml 600 ml Intake Oral 840 ml IV Total 400 ml 600 ml # Voids 7 2 Objective General Appearance: no acute distress, elderly, confused female HEENT: normocephalic, atraumatic, anicteric, mucous membranes moist Respiratory/Chest: lungs clear, no accessory muscle use Cardiovascular: normal peripheral pulses, normal rate, no JVD Abdomen: normal bowel sounds, soft, non tender, non distended Genitourinary: incontinent Extremities: no edema Neurologic/Psychiatric: abnormal gait, alert , confused Musculoskeletal: atrophy - BLE Laboratory Tests 10/09/18 05:40: White Blood Count 10.0, Red Blood Count 3.81L, Hemoglobin 11.7L, Hematocrit 34.4L, Mean Corpuscular Volume 90, Mean Corpuscular Hemoglobin 30.7, Mean Corpuscular Hemoglobin Concent 34.1, Red Cell Distribution Width 12.0, Platelet Count 231, Mean Platelet Volume 6.5, Neutrophils (%) (Auto) 81.1H, Lymphocytes ( %) (Auto) 8.9L, Monocytes (%) (Auto) 6.9, Eosinophils (%) (Auto) 1.7, Basophils (%) (Auto) 1.5, Sodium Level 141, Potassium Level 2.9L, Chloride Level 108H, Carbon Dioxide Level 28, Anion Gap 6, Blood Urea Nitrogen 9, Creatinine 0.7, Estimat Glomerular Filtration Rate , Glucose Level 107H, Calcium Level 8.9 Current Medications Medications (Trade) Dose Ordered Sig/Luis Route PRN Reason Start Time Stop Time Status Last Admin Dose Admin Acetaminophen (Tylenol) 650 mg Q4H PRN ORAL fever 10/05/18 14:30 11/04/18 14:29 Al Hydroxide/Mg Hydroxide (Mylanta II) 30 ml Q6H PRN ORAL dyspepsia 10/05/18 14:33 11/04/18 14:32 Atorvastatin Calcium (Lipitor) 20 mg BEDTIME ORAL 10/05/18 21:00 11/04/18 20:59 10/08/18 21:01 Clonidine HCl (Catapres Tab) 0.1 mg Q6H PRN ORAL SBP >160 10/08/18 20:15 11/07/18 20:14 Dextrose (Dextrose 50%) 25 ml Q30M PRN IV Hypoglycemia 10/05/18 14:30 11/04/18 14:29 Dextrose (Dextrose 50%) 50 ml Q30M PRN IV Hypoglycemia 10/05/18 14:30 11/04/18 14:29 Dextrose/Sodium Chloride 1,000 ml @ 100 mls/hr Q10H IV 10/05/18 14:28 11/04/18 14:27 10/09/18 00:00 Donepezil HCl (Aricept) 5 mg BEDTIME ORAL 10/05/18 21:00 11/04/18 20:59 10/08/18 21:01 Lorazepam (Ativan 2mg/ml 1ml) 1 mg Q6H PRN IV For Anxiety 10/05/18 17:00 10/12/18 16:59 10/09/18 05:22 Pantoprazole (Protonix) 40 mg EVERY 12 HOURS IVP 10/05/18 21:00 11/04/18 20:59 10/09/18 08:28 Potassium Chloride (K-Dur) 40 meq ONCE ORAL 10/09/18 09:00 10/09/18 10:00 Temazepam (Restoril) 15 mg HSPRN PRN ORAL Insomnia 10/05/18 14:30 10/12/18 14:29 10/07/18 20:39 Carolin Adamson [employer] ME[employer] Oct 09, 2018 09:29
[2018-10-09] MEDS: D5NS 1,000 ML IV SCH ×3 (10:27→11:47)
[2018-10-09 12:00] VITALS: BP 129/80
--- NOTE | 2018-10-09 13:15 | NUR ---
NURSE NOTES: Given ativan 1mg o.5mg IVP due to patient agitated and tried to get up from the bed without assistance,removed the restraints and yelling @RN and tried to hit with no apparent reason. Patient denied pain or discomfort. Tolerated well to the food. Prior to ativan IVP, non-pharmaceutical intervention done. Offered water, took patient to the bathroom, dim light and a quiet environment was provided but it was not effective. Will continue to monitor.
--- NOTE | 2018-10-09 13:40 | NUR ---
NURSE NOTES: Patient is calm @ this time. Bed alarm is on and restraints in place. No skin break or swelling on hands and wrist.
--- NOTE | 2018-10-09 15:44 | NUR ---
CASE MANAGEMENT: REVIEW SI: GI BLEED T 98.3 HR 71 RR 18 BP 148/90 SAT 97% ROOM AIR H/H 11.7/34.4 K 2.9 IS: D5 NS IVF @50ML/HR PROTONIX IV Q12HR MED/SURG STATUS' DCP: PATIENT IS FROM [facility]
[2018-10-09 16:00] VITALS: BP 138/82
--- NOTE | 2018-10-09 17:03 | General Progress Note ---
Assessment/Plan Assessment/Plan Assessment/Plan Problems: (1) Upper gastrointestinal bleed ICD Codes: K92.2 - Gastrointestinal hemorrhage, unspecified SNOMED: 75526620 (2) Dementia ICD Codes: F03.90 - Unspecified dementia without behavioral disturbance SNOMED: 86113530 Qualifiers: Qualified Codes: F03.91 - Unspecified dementia with behavioral disturbance (3) Malnutrition ICD Codes: E46 - Unspecified protein-calorie malnutrition SNOMED: 19704992 (4) GI bleed ICD Codes: K92.2 - Gastrointestinal hemorrhage, unspecified SNOMED: 66198671 (5) Coffee ground emesis ICD Codes: K92.0 - Hematemesis SNOMED: 63539501 (6) PUD (peptic ulcer disease) ICD Codes: K27.9 - Peptic ulcer, site unspecified, unspecified as acute or chronic, without hemorrhage or perforation SNOMED: 32117478 (7) Gastritis ICD Codes: K29.70 - Gastritis, unspecified, without bleeding SNOMED: 0530127 (8) Anemia ICD Codes: D64.9 - Anemia, unspecified SNOMED: 129177845 Status: stable Assessment/Plan SUMMARY OF FINDINGS: 1. Distal esophagitis, most probably the source of bleeding. 2. Gastritis, status post biopsy. RECOMMENDATIONS: 1. PPI daily. 2. Reflux measures. 3. Resume diet. 4. Discharge planning per primary team Subjective Allergies: Coded Allergies: No Known Allergies (Verified , 02/28/10) Subjective Agitated when examined d/w staff editor kept overnight Objective Last 24 Hour Vital Signs Date Time Temp Pulse Resp B/P (MAP) Pulse Ox O2 Delivery O2 Flow Rate FiO2 10/09/18 16:00 97.5 83 19 138/82 (100) 98 10/09/18 12:00 98.6 87 20 129/80 (96) 98 10/09/18 09:00 Room Air 10/09/18 08:00 98.3 71 18 139/86 (103) 97 10/09/18 04:00 98.0 87 18 145/92 (109) 97 87 10/08/18 22:00 148/90 (109) 10/08/18 21:00 Room Air 10/08/18 20:00 97.8 93 17 164/95 (118) 97 93 Intake and Output 10/08/18 10/09/18 19:00 07:00 Intake Total 1240 ml 700 ml Balance 1240 ml 700 ml Intake Oral 840 ml IV Total 400 ml 700 ml # Voids 7 2 Laboratory Tests 10/09/18 05:40: White Blood Count 10.0, Red Blood Count 3.81L, Hemoglobin 11.7L, Hematocrit 34.4L, Mean Corpuscular Volume 90, Mean Corpuscular Hemoglobin 30.7, Mean Corpuscular Hemoglobin Concent 34.1, Red Cell Distribution Width 12.0, Platelet Count 231, Mean Platelet Volume 6.5, Neutrophils (%) (Auto) 81.1H, Lymphocytes ( %) (Auto) 8.9L, Monocytes (%) (Auto) 6.9, Eosinophils (%) (Auto) 1.7, Basophils (%) (Auto) 1.5, Sodium Level 141, Potassium Level 2.9L, Chloride Level 108H, Carbon Dioxide Level 28, Anion Gap 6, Blood Urea Nitrogen 9, Creatinine 0.7, Estimat Glomerular Filtration Rate , Glucose Level 107H, Calcium Level 8.9 Height (Feet): 5 Height (Inches): 2.00 Weight (Pounds): 110 Objective WDWN NCAT supple CTA RR abd soft ND no edema agitated Fiordaliza Euceda MD Oct 09, 2018 17:03
[2018-10-09] MEDS ORDERED: D5NS 1000ml IV ONE (17:22)
--- NOTE | 2018-10-09 19:29 | NUR ---
HAND-OFF: Report given to Marianela.
--- NOTE | 2018-10-09 19:30 | NUR ---
NURSE NOTES: Received patient in bed. On RA, no SOB, no acute distress, no c/o pain. Lacho soft restraint still in use. Patient is still agitated time to time. RFA IV intact patent running IVF. Bed in lowest position, locked, alarms on. Call light in reach.
[2018-10-09] MEDS: Donepezil 5mg Tab ORAL SCH (19:47)
[2018-10-09 20:00] VITALS: BP 136/85
[2018-10-10] VITALS: BP 140/88
[2018-10-10 04:00] VITALS: BP 157/91
[2018-10-10] MEDS: D5NS 1,000 ML IV SCH (05:39)
[2018-10-10 07:35] LABS: BASOPHILS % (AUTO) 0.8 % (0.0-2.0); EOSINOPHILS % (AUTO) 2.4 % (0.0-3.0); HEMATOCRIT 34.7 % (37.0-47.0); HEMOGLOBIN 11.7 G/DL (12.0-16.0); LYMPHOCYTES % (AUTO) 13.5 % (20.0-45.0); MEAN CORPUSCULAR VOLUME 91 FL (80-99); MONOCYTES % (AUTO) 5.7 % (1.0-10.0); NEUTROPHILS % (AUTO) 77.7 % (45.0-75.0); PLATELET COUNT 249 K/UL (150-450); WHITE BLOOD COUNT 10.1 K/UL (4.8-10.8)
--- NOTE | 2018-10-10 07:45 | NUR ---
HAND-OFF: Report given to Anahi JARRETT.
[2018-10-10] MEDS: LORazepam Inj 2mg/ml 1ml IV PRN ×2 (07:53→15:18)
[2018-10-10 07:59] LABS: ANION GAP 6 mmol/L (5-15); BLOOD UREA NITROGEN 10 mg/dL (7-18); CALCIUM 9.1 MG/DL (8.5-10.1); CARBON DIOXIDE 27 MMOL/L (21-32); CHLORIDE 109 MMOL/L (98-107); CREATININE 0.7 MG/DL (0.55-1.30); POTASSIUM 3.7 MMOL/L (3.5-5.1); SODIUM 142 MMOL/L (136-145)
[2018-10-10 08:00] VITALS: BP 143/88
--- NOTE | 2018-10-10 08:02 | NUR ---
NURSE NOTES: Patient received in stable condition. Confused and disoriented, tried to get out of bed but re-directed. Soft restraints secured bilaterally. Patient calmed down, currently laying in bed. IV site on right hand patent and intact. Safety precautions maintained, bed locked in lowest position. Bed alarm is on. Call light within reach, will continue to monitor.
[2018-10-10] MEDS: Pantoprazole Inj IVP SCH (08:47)
[2018-10-10 12:00] VITALS: BP 134/82
--- NOTE | 2018-10-10 12:01 | Infectious Diseases Prog Note ---
Assessment/Plan Assessment/Plan Abx: None Assessment: Leukocytosis- suspect reactive to coffee ground emesis; resolved off abx -CXR: Hypoventilatory exam with bilateral basilar atelectatic changes. No definite acute process otherwise Afebrile Pyuria -u/a wbc 15-20, nit neg, leuk +3; ucx 60-70k E.coli (estrada S), >100k Aerococcus viridans ; colonizers HLD Dementia Plan: -Continue to monitor off abx unless febrile, increasing WBC and/or HD instability -f/u cx -Monitor CBC/CMP, temperatures Thank you for this consultation. Will continue to follow along with you. Discussed with RN. Subjective Allergies: Coded Allergies: No Known Allergies (Verified , 02/28/10) Subjective afebrile no leukocytosis off abx Objective Vital Signs Last 24 Hour Vital Signs Date Time Temp Pulse Resp B/P (MAP) Pulse Ox O2 Delivery O2 Flow Rate FiO2 10/10/18 09:00 Room Air 10/10/18 08:00 97.8 76 17 143/88 (106) 99 10/10/18 04:00 97.4 74 16 157/91 (113) 98 10/10/18 00:00 98.2 67 16 140/88 (105) 95 10/09/18 21:00 Room Air 10/09/18 20:00 97.9 84 16 136/85 (102) 98 10/09/18 16:00 97.5 83 19 138/82 (100) 98 10/09/18 12:00 98.6 87 20 129/80 (96) 98 Height (Feet): 5 Height (Inches): 2.00 Weight (Pounds): 110 Objective General Appearance: well appearing, no apparent distress, alert, thin HEENT: normocephalic, PERRL/EOMI, normal ENT inspection Neck: supple Respiratory: normal breath sounds, no respiratory distress Cardiovascular: normal rate Gastrointestinal: normal inspection, non tender, soft, normal bowel sounds, non -distended Musculoskeletal: normal inspection, back normal Neurologic: alert, responsive Skin: normal inspection, normal color, no rash, warm/dry, palpation normal, well hydrated Laboratory Tests Test 10/10/18 07:10 White Blood Count 10.1 K/UL (4.8-10.8) Red Blood Count 3.80 M/UL (4.20-5.40) L Hemoglobin 11.7 G/DL (12.0-16.0) L Hematocrit 34.7 % (37.0-47.0) L Mean Corpuscular Volume 91 FL (80-99) Mean Corpuscular Hemoglobin 30.7 PG (27.0-31.0) Mean Corpuscular Hemoglobin Concent 33.6 G/DL (32.0-36.0) Red Cell Distribution Width 12.0 % (11.6-14.8) Platelet Count 249 K/UL (150-450) Mean Platelet Volume 5.7 FL (6.5-10.1) L Neutrophils (%) (Auto) 77.7 % (45.0-75.0) H Lymphocytes (%) (Auto) 13.5 % (20.0-45.0) L Monocytes (%) (Auto) 5.7 % (1.0-10.0) Eosinophils (%) (Auto) 2.4 % (0.0-3.0) Basophils (%) (Auto) 0.8 % (0.0-2.0) Sodium Level 142 MMOL/L (136-145) Potassium Level 3.7 MMOL/L (3.5-5.1) Chloride Level 109 MMOL/L (98-107) H Carbon Dioxide Level 27 MMOL/L (21-32) Anion Gap 6 mmol/L (5-15) Blood Urea Nitrogen 10 mg/dL (7-18) Creatinine 0.7 MG/DL (0.55-1.30) Estimat Glomerular Filtration Rate mL/min (>60) Glucose Level 100 MG/DL (74-106) Calcium Level 9.1 MG/DL (8.5-10.1) Magnesium Level 1.8 MG/DL (1.8-2.4) Current Medications Medications (Trade) Dose Ordered Sig/Luis Route PRN Reason Start Time Stop Time Status Last Admin Dose Admin Acetaminophen (Tylenol) 650 mg Q4H PRN ORAL fever 10/05/18 14:30 11/04/18 14:29 Al Hydroxide/Mg Hydroxide (Mylanta II) 30 ml Q6H PRN ORAL dyspepsia 10/05/18 14:33 11/04/18 14:32 Atorvastatin Calcium (Lipitor) 20 mg BEDTIME ORAL 10/05/18 21:00 3/22/19 20:59 10/09/18 19:46 Clonidine HCl (Catapres Tab) 0.1 mg Q6H PRN ORAL SBP >160 10/08/18 20:15 11/07/18 20:14 Dextrose (Dextrose 50%) 25 ml Q30M PRN IV Hypoglycemia 10/05/18 14:30 11/04/18 14:29 Dextrose (Dextrose 50%) 50 ml Q30M PRN IV Hypoglycemia 10/05/18 14:30 11/04/18 14:29 Dextrose/Sodium Chloride 1,000 ml @ 50 mls/hr Q20H IV 10/09/18 11:30 11/04/18 11:29 10/10/18 05:39 Donepezil HCl (Aricept) 5 mg BEDTIME ORAL 10/05/18 21:00 11/04/18 20:59 10/09/18 19:47 Lorazepam (Ativan 2mg/ml 1ml) 1 mg Q6H PRN IV For Anxiety 10/05/18 17:00 10/12/18 16:59 10/10/18 07:53 Pantoprazole (Protonix) 40 mg EVERY 12 HOURS IVP 10/05/18 21:00 11/04/18 20:59 10/10/18 08:47 Temazepam (Restoril) 15 mg HSPRN PRN ORAL Insomnia 10/05/18 14:30 10/12/18 14:29 10/07/18 20:39 Miley Worthington M.D. Oct 10, 2018 12:00
--- NOTE | 2018-10-10 12:04 | GI Progress Note ---
Assessment/Plan Problems: (1) Upper gastrointestinal bleed ICD Codes: K92.2 - Gastrointestinal hemorrhage, unspecified SNOMED: 82061426 (2) Dementia ICD Codes: F03.90 - Unspecified dementia without behavioral disturbance SNOMED: 98571421 Qualifiers: Qualified Codes: F03.91 - Unspecified dementia with behavioral disturbance (3) Malnutrition ICD Codes: E46 - Unspecified protein-calorie malnutrition SNOMED: 94740947 (4) GI bleed ICD Codes: K92.2 - Gastrointestinal hemorrhage, unspecified SNOMED: 60538057 (5) Coffee ground emesis ICD Codes: K92.0 - Hematemesis SNOMED: 95607639 (6) PUD (peptic ulcer disease) ICD Codes: K27.9 - Peptic ulcer, site unspecified, unspecified as acute or chronic, without hemorrhage or perforation SNOMED: 22506132 (7) Gastritis ICD Codes: K29.70 - Gastritis, unspecified, without bleeding SNOMED: 2343568 (8) Anemia ICD Codes: D64.9 - Anemia, unspecified SNOMED: 662219976 Status: stable Status Narrative Discussed with Dr. Jackson Assessment/Plan SUMMARY OF FINDINGS: 1. Distal esophagitis, most probably the source of bleeding. 2. Gastritis, status post biopsy. RECOMMENDATIONS: 1. PPI daily. 2. Reflux measures. 3. Resume diet. 4. Discharge planning per primary team. The patient was seen and examined at bedside and all new and available data was reviewed in the patients chart. I agree with the above findings, impression and plan. (Patient seen earlier today. Signature stamp does not reflect patient encounter time.). - Jordon Jackson MD Subjective Subjective Limited Objective Last 24 Hour Vital Signs Date Time Temp Pulse Resp B/P (MAP) Pulse Ox O2 Delivery O2 Flow Rate FiO2 10/10/18 09:00 Room Air 10/10/18 08:00 97.8 76 17 143/88 (106) 99 10/10/18 04:00 97.4 74 16 157/91 (113) 98 10/10/18 00:00 98.2 67 16 140/88 (105) 95 10/09/18 21:00 Room Air 10/09/18 20:00 97.9 84 16 136/85 (102) 98 10/09/18 16:00 97.5 83 19 138/82 (100) 98 Intake and Output 10/09/18 10/10/18 18:59 06:59 Intake Total 850 ml 1550 ml Balance 850 ml 1550 ml Intake Oral 240 ml IV Total 850 ml 860 ml Other 450 ml # Voids 9 Laboratory Tests Test 10/10/18 07:10 White Blood Count 10.1 K/UL (4.8-10.8) Red Blood Count 3.80 M/UL (4.20-5.40) L Hemoglobin 11.7 G/DL (12.0-16.0) L Hematocrit 34.7 % (37.0-47.0) L Mean Corpuscular Volume 91 FL (80-99) Mean Corpuscular Hemoglobin 30.7 PG (27.0-31.0) Mean Corpuscular Hemoglobin Concent 33.6 G/DL (32.0-36.0) Red Cell Distribution Width 12.0 % (11.6-14.8) Platelet Count 249 K/UL (150-450) Mean Platelet Volume 5.7 FL (6.5-10.1) L Neutrophils (%) (Auto) 77.7 % (45.0-75.0) H Lymphocytes (%) (Auto) 13.5 % (20.0-45.0) L Monocytes (%) (Auto) 5.7 % (1.0-10.0) Eosinophils (%) (Auto) 2.4 % (0.0-3.0) Basophils (%) (Auto) 0.8 % (0.0-2.0) Sodium Level 142 MMOL/L (136-145) Potassium Level 3.7 MMOL/L (3.5-5.1) Chloride Level 109 MMOL/L (98-107) H Carbon Dioxide Level 27 MMOL/L (21-32) Anion Gap 6 mmol/L (5-15) Blood Urea Nitrogen 10 mg/dL (7-18) Creatinine 0.7 MG/DL (0.55-1.30) Estimat Glomerular Filtration Rate mL/min (>60) Glucose Level 100 MG/DL (74-106) Calcium Level 9.1 MG/DL (8.5-10.1) Magnesium Level 1.8 MG/DL (1.8-2.4) Height (Feet): 5 Height (Inches): 2.00 Weight (Pounds): 110 General Appearance: WD/WN, no apparent distress, alert Cardiovascular: normal rate Respiratory/Chest: normal breath sounds, no respiratory distress Abdominal Exam: normal bowel sounds, non tender, soft Extremities: non-tender Ed Ruiz NP Oct 10, 2018 12:04
--- NOTE | 2018-10-10 13:48 | General Progress Note ---
Assessment/Plan Problem List: (1) Malnutrition ICD Codes: E46 - Unspecified protein-calorie malnutrition SNOMED: 53800524 (2) UTI (urinary tract infection) ICD Codes: N39.0 - Urinary tract infection, site not specified SNOMED: 16356282 Qualifiers: Qualified Codes: N39.0 - Urinary tract infection, site not specified (3) Coffee ground emesis ICD Codes: K92.0 - Hematemesis SNOMED: 12034647 (4) GI bleed ICD Codes: K92.2 - Gastrointestinal hemorrhage, unspecified SNOMED: 69346184 (5) Anemia ICD Codes: D64.9 - Anemia, unspecified SNOMED: 592279540 Status: unchanged Assessment/Plan pt diet abx gi f/u cbc bmp am dc to psyc if clear Subjective Constitutional: Reports: weakness Allergies: Coded Allergies: No Known Allergies (Verified , 02/28/10) All Systems: reviewed and negative except above Subjective calm in bed Objective Last 24 Hour Vital Signs Date Time Temp Pulse Resp B/P (MAP) Pulse Ox O2 Delivery O2 Flow Rate FiO2 10/10/18 12:00 98.1 78 18 134/82 (99) 99 10/10/18 09:00 Room Air 10/10/18 08:00 97.8 76 17 143/88 (106) 99 10/10/18 04:00 97.4 74 16 157/91 (113) 98 10/10/18 00:00 98.2 67 16 140/88 (105) 95 10/09/18 21:00 Room Air 10/09/18 20:00 97.9 84 16 136/85 (102) 98 10/09/18 16:00 97.5 83 19 138/82 (100) 98 Intake and Output 10/09/18 10/10/18 18:59 06:59 Intake Total 850 ml 1550 ml Balance 850 ml 1550 ml Intake Oral 240 ml IV Total 850 ml 860 ml Other 450 ml # Voids 9 Laboratory Tests 10/10/18 07:10: White Blood Count 10.1, Red Blood Count 3.80L, Hemoglobin 11.7L, Hematocrit 34.7L, Mean Corpuscular Volume 91, Mean Corpuscular Hemoglobin 30.7, Mean Corpuscular Hemoglobin Concent 33.6, Red Cell Distribution Width 12.0, Platelet Count 249, Mean Platelet Volume 5.7L, Neutrophils (%) (Auto) 77.7H, Lymphocytes (%) (Auto) 13.5L, Monocytes (%) (Auto) 5.7, Eosinophils (%) (Auto) 2.4, Basophils (%) (Auto) 0.8, Sodium Level 142, Potassium Level 3.7, Chloride Level 109H, Carbon Dioxide Level 27, Anion Gap 6, Blood Urea Nitrogen 10, Creatinine 0.7, Estimat Glomerular Filtration Rate , Glucose Level 100, Calcium Level 9.1, Magnesium Level 1.8 Height (Feet): 5 Height (Inches): 2.00 Weight (Pounds): 110 General Appearance: lethargic, confused EENT: normal ENT inspection Neck: normal alignment Cardiovascular: normal peripheral pulses, normal rate, regular rhythm Respiratory/Chest: chest wall non-tender, lungs clear, normal breath sounds Abdomen: normal bowel sounds, non tender, soft Extremities: normal inspection Edema: no edema noted Arm (L), no edema noted Arm (R), no edema noted Leg (L), no edema noted Leg (R), no edema noted Pedal (L), no edema noted Pedal (R), no edema noted Generalized Neurologic: motor weakness Skin: normal pigmentation, warm/dry Shamar Crane DO Oct 10, 2018 13:48
--- NOTE | 2018-10-10 13:58 | NUR ---
RD ASSESSMENT & RECOMMENDATIONS SEE CARE ACTIVITY FOR COMPLETE ASSESSMENT DAILY ESTIMATED NEEDS: Needs based on Cardiac, wasting 41kg 25-35 kcals/kg 7605-9059 total kcals 1-1.2 g protein/kg 41-49 g total protein 25-30 mL/kg 7368-8159 total fluid mLs NUTRITION DIAGNOSIS: Altered GI fxn r/t GIB as evidenced by s/p EGD with distal esophagitis, diet now advanced to soft. CURRENT DIET: Regular Soft PO DIET RECOMMENDATIONS: SOFT/ BLAND DIET ADDITIONAL RECOMMENDATIONS: 1) Recalibrate bed scale for accurate CBW 2) Limit acidic foods, caffiene 3) Monitor po intake, need for supplements -> Add ENSURE ENLIVE qdaily @10am 4) Add Snacks BID in b/w meals
--- NOTE | 2018-10-10 14:00 | NUR ---
Social Service Note [facility] spoke with [facility] [phone] due to no current documented psych diagnosis and only Allzheimer's type indicated. Also [facility] doesn't have available beds. Patient from [facility] and is able to manage patient's behaviors. SW informed Dr. Crane and CM. Will continue to be available as needed.
--- NOTE | 2018-10-10 14:25 | Pulmonology Progress Note ---
Assessment/Plan Problems: (1) Upper gastrointestinal bleed (2) Coffee ground emesis (3) Protein-calorie malnutrition, severe (4) Psychosis (5) Dementia Assessment/Plan EGD done, showing gastritis dcNPO start feeding, iv fluids, the same rate H2 blockers check electrolytes continue psych meds prbc prn GI evaluation Subjective Allergies: Coded Allergies: No Known Allergies (Verified , 02/28/10) Objective Last 24 Hour Vital Signs Date Time Temp Pulse Resp B/P (MAP) Pulse Ox O2 Delivery O2 Flow Rate FiO2 10/10/18 12:00 98.1 78 18 134/82 (99) 99 10/10/18 09:00 Room Air 10/10/18 08:00 97.8 76 17 143/88 (106) 99 10/10/18 04:00 97.4 74 16 157/91 (113) 98 10/10/18 00:00 98.2 67 16 140/88 (105) 95 10/09/18 21:00 Room Air 10/09/18 20:00 97.9 84 16 136/85 (102) 98 10/09/18 16:00 97.5 83 19 138/82 (100) 98 Intake and Output 10/09/18 10/10/18 18:59 06:59 Intake Total 850 ml 1550 ml Balance 850 ml 1550 ml Intake Oral 240 ml IV Total 850 ml 860 ml Other 450 ml # Voids 9 Objective General Appearance: WD/WN HEENT: normocephalic Respiratory/Chest: chest wall non-tender, lungs clear, normal breath sounds Breasts: no masses Cardiovascular: normal peripheral pulses, normal rate Abdomen: normal bowel sounds, soft, non tender Extremities: no cyanosis Skin: no rash Laboratory Tests 10/10/18 07:10: White Blood Count 10.1, Red Blood Count 3.80L, Hemoglobin 11.7L, Hematocrit 34.7L, Mean Corpuscular Volume 91, Mean Corpuscular Hemoglobin 30.7, Mean Corpuscular Hemoglobin Concent 33.6, Red Cell Distribution Width 12.0, Platelet Count 249, Mean Platelet Volume 5.7L, Neutrophils (%) (Auto) 77.7H, Lymphocytes (%) (Auto) 13.5L, Monocytes (%) (Auto) 5.7, Eosinophils (%) (Auto) 2.4, Basophils (%) (Auto) 0.8, Sodium Level 142, Potassium Level 3.7, Chloride Level 109H, Carbon Dioxide Level 27, Anion Gap 6, Blood Urea Nitrogen 10, Creatinine 0.7, Estimat Glomerular Filtration Rate , Glucose Level 100, Calcium Level 9.1, Magnesium Level 1.8 Current Medications Medications (Trade) Dose Ordered Sig/Luis Route PRN Reason Start Time Stop Time Status Last Admin Dose Admin Acetaminophen (Tylenol) 650 mg Q4H PRN ORAL fever 10/05/18 14:30 11/04/18 14:29 Al Hydroxide/Mg Hydroxide (Mylanta II) 30 ml Q6H PRN ORAL dyspepsia 10/05/18 14:33 11/04/18 14:32 Atorvastatin Calcium (Lipitor) 20 mg BEDTIME ORAL 10/05/18 21:00 11/04/18 20:59 10/09/18 19:46 Clonidine HCl (Catapres Tab) 0.1 mg Q6H PRN ORAL SBP >160 10/08/18 20:15 11/07/18 20:14 Dextrose (Dextrose 50%) 25 ml Q30M PRN IV Hypoglycemia 10/05/18 14:30 11/04/18 14:29 Dextrose (Dextrose 50%) 50 ml Q30M PRN IV Hypoglycemia 10/05/18 14:30 11/04/18 14:29 Dextrose/Sodium Chloride 1,000 ml @ 50 mls/hr Q20H IV 10/09/18 11:30 11/04/18 11:29 10/10/18 05:39 Donepezil HCl (Aricept) 5 mg BEDTIME ORAL 10/05/18 21:00 11/04/18 20:59 10/09/18 19:47 Lorazepam (Ativan 2mg/ml 1ml) 1 mg Q6H PRN IV For Anxiety 10/05/18 17:00 10/12/18 16:59 10/10/18 07:53 Pantoprazole (Protonix) 40 mg EVERY 12 HOURS IVP 10/05/18 21:00 11/04/18 20:59 10/10/18 08:47 Temazepam (Restoril) 15 mg HSPRN PRN ORAL Insomnia 10/05/18 14:30 10/12/18 14:29 10/07/18 20:39 Matt Alegre MD Oct 10, 2018 14:25
--- NOTE | 2018-10-10 15:44 | NUR ---
*-* DISCHARGE PLANNING *-* PATIENT HAS BEEN REFERRED BACK TO: [facility] P:[phone] F:[phone]
[2018-10-10 16:00] VITALS: BP 130/79
--- NOTE | 2018-10-10 17:01 | NUR ---
*-* DISCHARGED PLANNED *-* [PATIENT IS DISCHARGE TO: [facility] ROOM# 300-C SKILLED T:[phone] FOR NURSE TO NURSE REPORT [facility] HAS ARRANGED [facility] FOR 600 PM
[2018-10-10] MEDS ORDERED: TEMAZEPAM15 MG ORAL (17:36)
[2018-10-10] MEDS ORDERED: LORAZEPAM1 MG ORAL (17:39)
--- NOTE | 2018-10-10 19:25 | NUR ---
HAND-OFF: Report given to Liberty JARRETT.
--- NOTE | 2018-10-10 19:30 | NUR ---
NURSE NOTES: patient received. patient in no acute distress at this time. patient complains of no pain at this time. patient awake alert and oriented x1. patient IV intact and asymptomatic. patient ready for discharge. patient is going back to [facility]. day shift nurse spoke to Kris JARRETT at facility. discharge planning has been done. will continue to monitor.
--- NOTE | 2018-10-11 11:15 | Consultation ---
DATE OF CONSULTATION: 10/10/2018 NOTE: POOR AUDIO CONSULTING PHYSICIAN: Go Abad M.D. HISTORY OF PRESENT ILLNESS: This is an 83-year-old patient. She has a GI infection. She is very confused, disorganized thought process. She has got no logical plan for own self-care. She has got feelings of low energy, poor appetite, loss of interest in activity. That is why, she is admitted to the hospital. She has got very poor insight and she also has anemia, coffee-ground emesis and GI bleeding. The patient has a lot of psychomotor agitation. That is why, daily psychiatric consultation is requested. ALLERGIES: No known drug allergies. MEDICATIONS: Psychotropic medications on admission, Aricept 5 mg twice a day and Ativan as needed. SUBSTANCE ABUSE HISTORY: Denies. PAIN ASSESSMENT: 0/10 pain. DEVELOPMENTAL PROBLEMS: Denies. SOCIAL HISTORY: The patient lives in a half-way. Financially supported by [employer] and Medicare. Living in [facility]. PSYCHIATRIC HISTORY: History of major depressive disorder, severe, rule out dementia with psychosis. MENTAL STATUS EXAMINATION: This is an 83-year-old female. Appearance is disheveled. Attitude, irritable and agitated. Affect, guarded and restricted. Intellect poor. Mood depressed and anxious. Motor activity, psychomotor agitation. Attention span is poor. Orientation x2. Speech is pressured. Thought process, disorganized and illogical. Insight and judgment is poor. DIAGNOSIS: Major depressive disorder, mild, recurrent psychotic features, rule out pseudodementia. PLAN: Treat the patient with Aricept 5 mg at bedtime and Ativan 1 mg IV q.4 h. p.r.n. anxiety and agitation. Provided with 20 minutes of cognitive behavioral therapy to help identify automatic negative thoughts and help convert those negative thoughts to more positive thoughts. cognitive behavioral therapy. Thank you Dr. Shamar Crane for this consultation. Go Abad M.D. DR: GENE JOB#: [id number] CC:
--- NOTE | 2018-10-11 17:33 | Discharge Summary ---
Discharge Summary Discharge Summary _ DATE OF ADMISSION: 10/05/2018 DATE OF DISCHARGE: 10/10/2018 DISCHARGED BY: Dr. Crane REASON FOR ADMISSION: 83 years old female with past medical history of dementia, hyperlipidemia , hypertension ,GERD ,schizophrenia ,depression ,was sent for coffee-ground emesis. Upon evaluation vital signs were stable. Laboratory workup revealed mild leukocytosis, hemoglobin 11.7, hematocrit 34.9, stable coagulation profile. Stable electrolytes. Stable renal parameters and LFT. Troponin negative. Albumin 3.3. EKG revealed normal sinus rhythm , no acute ischemic changes. Right bundle branch block. Chest x-ray revealed no acute cardiopulmonary pathology Urinalysis revealed evidence of UTI.. Abdominal x-ray revealed no evidence of acute process. Patient was admitted for further management CONSULTANTS: pulmonary Dr. Alegre ID specialist Dr. Macario GI specialist Dr. Jackson psychiatrist Dr. Abad [facility] COURSE: Patient admitted , was kept n.p.o. and started on the IV fluids. GI consult was requested. Patient was scheduled for EGD. Patient started on clear liquid diet as tolerated. All blood thinners were on hold. Bowel regimen instituted. Patient started on PPI twice daily. Patient subsequently undergone upper endoscopy with biopsy on 10/06/2018 which revealed distal esophagitis, most probably the source of bleeding and gastritis , status post biopsy. At the time of this dictation biopsy results still pending. GI specialist recommended to start diet as tolerated and follow-up with a biopsy results. PPI was continued. Aspiration /reflux precaution were maintained. Infectious disease doctor closely followed. Urine culture revealed E. coli with 60-70K colony count, Mild leukocytosis, initially present,- resolved, suspected to be reactive , secondary to coffee-ground emesis. ID specialist recommended to monitor patient off antibiotic, unless febrile , leukocytosis and/or hemodynamic instability. Patient was on gentle IV fluids. Patient was able to tolerate diet. Dietary recommendation implemented in plan of care. Statin was continued. Venous duplex bilateral lower extremity revealed no evidence of acute DVT. Supplemental oxygen provided as needed to keep pulse oximetry above 92% . Chest x-ray was stable. Patient was working with physical therapist. Bowel regimen instituted. Supportive care provided. Renal parameters and electrolytes were closely monitored. Electrolytes corrected as needed. Psychiatrist followed. Psychiatric medication regimen was optimized. Cognitive behavioral therapy provided. Patient was clinically stabilized and ready for discharge to custodial facility /[facility]. FINAL DIAGNOSES: Upper GI bleeding/coffee-ground emesis Status post EGD Gastritis Esophagitis Peptic ulcer disease Severe protein calorie malnutrition Leukocytosis , likely reactive- resolved Pyuria Dementia Hypokalemia Major depressive disorder, mild recurrent without psychotic features DISCHARGE MEDICATIONS: See Medication Reconciliation list. DISCHARGE INSTRUCTIONS: Patient was discharged to the custodial facility. Follow up with medical doctor at the facility. Carolin Adamson NP Oct 11, 2018 17:33
== END 2018-10-10 19:30 | DRG 391 ==
LOC: EDBD 10:23 → EMR 11:35 → 4E 11:41 → EDBEDREQ 12:34 → 4E 10-06 07:59
PROC: 0DD68ZX Extraction of Stomach, Via Natural or Artificial Opening Endoscopic, Diagnostic (ICD-10-PCS; principal; 2018-10-06 11:40)
DX: K21.0 Gastro-esophageal reflux disease with esophagitis (principal); E43 Unspecified severe protein-calorie malnutrition; N39.0 Urinary tract infection, site not specified; F03.91 Unspecified dementia, unspecified severity, with behavioral disturbance; G93.40 Encephalopathy, unspecified; F33.9 Major depressive disorder, recurrent, unspecified; K29.70 Gastritis, unspecified, without bleeding; D72.829 Elevated white blood cell count, unspecified; K22.8 Other specified diseases of esophagus; D64.9 Anemia, unspecified; K27.9 Peptic ulcer, site unspecified, unspecified as acute or chronic, without hemorrhage or perforation; Z68.20 Body mass index [BMI] 20.0-20.9, adult; Z78.1 Physical restraint status; E87.6 Hypokalemia; B96.20 Unspecified Escherichia coli [E. coli] as the cause of diseases classified elsewhere
CPT/HCPCS: 36415; 71045; 74018; 80048; 80053; 81003; 82150; 83690; 83735; 84484; 85025; 85610; 85730; 86850; 86900; 86901; 87081; 87086; 87181; 93005; 93970; 94003; 94150; 96361; 96372; 96374; 96375; 99285; J2405; J8499

== ENCOUNTER → 2019-12-22 | Emergency (ER) | payer MEDICARE, MEDICAID ==
[~2019-12-22] VITALS: Ht 162.6 cm; Wt 49.9 kg
[~2019-12-22] MED LIST changes: +LIPITOR20 MG ORAL; +LORAZEPAM1 MG ORAL; +MILK OF MA400 MG/51 ORAL; +PERMETHRIN60 GM TOPIC; +TEMAZEPAM15 MG ORAL
[2019-12-22 06:48] VITALS: BP 119/82
--- NOTE | 2019-12-22 06:49 | NUR ---
ED Nurse Note: PT BROUGHT IN BY [facility]NA FROM [facility] FOR POSSIBLE SCABIES X2DAYS. PT WAS FOUND COSTANTLY ITCHING AROUND THE ABDOMEN AREA. MILD RED BUMPS NOTED ON THE ABDOMEN. PT WAS GIVEN 25 MG BENADRYL AT SNF AT 0530. PT VSS, NAD, AAOX3, ERMD AT BEDSIDE
[2019-12-22 06:50] VITALS: BP 119/82
--- NOTE | 2019-12-22 06:50 | NUR ---
ER DISCHARGE NOTE: Patient is cleared to be discharged per ERMD, pt is aox3, on room air, with stable vital signs. pt was given dc and prescription instructions, pt id band removed without complications. pt is sent back [facility]. Report given to Gino JARRETT at facility.
--- NOTE | 2019-12-22 06:56 | Emergency Room Report ---
History of Present Illness General Chief Complaint: Skin Rash/Abscess Source: EMS Present Illness HPI Patient presents with reports of skin rash History is provided by paramedics patient is at a nursing facility and there was a report that her roommates had similar skin rash and was diagnosed with scabies Patient herself does not provide any history has underlying significant dementia there was no reports of fevers no reports of vomiting or diarrhea the rash is reported to be fairly diffuse Patient otherwise presents fairly comfortable in appearance Allergies: Coded Allergies: No Known Allergies (Verified , 02/28/10) COVID-19 Screening Contact w/high risk pt: No Recent Travel to affected area: No Experienced COVID-19 symptoms?: No Patient History Limited by: medical condition Past Medical History: see triage record Reviewed Nursing Documentation: PMH: Agreed; PSxH: Agreed Nursing Documentation-PMH Hx Cardiac Problems: Yes Hx Hypertension: Yes Hx Gastrointestinal Problems: Yes Hx Neurological Problems: Yes Hx Dementia: Yes Hx Dysphasia: Yes Hx Weakness: Yes Review of Systems All Other Systems: limited - Other than the ones mentioned in the history of present illness all others are reviewed however they do stay limited due to the patient's mental status Physical Exam Vital Signs Date Time Temp Pulse Resp B/P (MAP) Pulse Ox O2 Delivery O2 Flow Rate FiO2 12/22/19 06:44 97.9 76 18 123/78 (93) 94 Room Air Sp02 EP Interpretation: reviewed, normal General Appearance: well appearing, no apparent distress Head: normocephalic, atraumatic Eyes: bilateral eye PERRL, bilateral eye EOMI ENT: EOM grossly intact Neck: supple Respiratory: lungs clear, no respiratory distress, no retraction Cardiovascular #1: regular rate, rhythm Gastrointestinal: non tender Musculoskeletal: other - Patient moves both upper extremities equally further evaluation was not performed Neurologic: responsive - To physical and verbal stimuli with following simple commands Skin: other - Areas of rash noted diffusely significantly on the chest as well with several areas involved with scab formation no obvious fluctuance Lymphatic: no adenopathy Medical Decision Making Diagnostic Impression: Primary Impression: dermatitis Additional Impression: scabies ER Course Patient's skin exam does show consistent findings with scabies there is no obvious signs of dermatomal pattern or abscess formation Patient was prescribed appropriate medication for this And requires improved fci follow-up Last Vital Signs Date Time Temp Pulse Resp B/P (MAP) Pulse Ox O2 Delivery O2 Flow Rate FiO2 12/22/19 06:48 98.0 66 18 119/82 97 Room Air Status: unchanged Disposition: SNF Condition: Stable Scripts Permethrin* (ELIMITE*) 60 Gm Cream..g. 1 APPLIC TOPIC ONCE, #60 GM 2 Refills Apply cream from head to toe; leave on for 8-14 hours before washing off with water; may reapply in 1 week if live mites appear. Prov: Esme Schulte DO 12/22/19 Referrals: Shamar Crane DO Patient Instructions: Scabies, Pediatric, Rash, [id number] Additional Instructions: Patient is provided with the discharge instructions notified to follow up with primary doctor in the next 2-3 days otherwise return to the er with any worsening symptoms. Please note that this report is being documented using [employer] technology. This can lead to erroneous entry secondary to incorrect interpretation by the dictating instrument. Esme Schulte DO December 22, 2019 06:56
== END ==
LOC: EDBD 06:43 → EDUNIT# 06:43 → EMR 06:50
DX: L30.9 Dermatitis, unspecified (principal); B86 Scabies; I10 Essential (primary) hypertension; F03.90 Unspecified dementia, unspecified severity, without behavioral disturbance, psychotic disturbance, mood disturbance, and anxiety
CPT/HCPCS: 99282